=== PATIENT | male | born 1955 | race Caucasian/White ===

== ENCOUNTER 2025-07-19 22:29 | Inpatient (IN) | payer MEDICARE, BC, SELFPAY ==
--- NOTE | 2025-07-19 22:30 | PTCARENOTE ---
Patient received from transport @ 2230. Patient states he is comfortable w/ no pain. AOx3. SR on monitor BP 150/91 HR 86. Heart sounds audible but distant. Radial and pedal pulses present. Trace bilateral hand edema. POX 95% RA. Expiratory
wheezes and course bilateral lung sounds. Normoactive bowel sounds. Voids clear yellow urine. PIV's patent and intact. Right radial and right brachial cath sites C/D/I. Heparin infusing per protocol. Admission questions asked. Med
reconciliation performed. Labs and EKG obtained. See worklist for more details.
[2025-07-19 22:31] VITALS: BMI 34.6
[2025-07-19 22:35] VITALS: BP 150/91
[2025-07-19 22:55] LABS: Hematocrit 38.2 % (39.0-52.0); Hemoglobin 13.2 g/dL (13.0-18.0); Mean Corp Hgb Conc. 34.6 g/dL (33.0-37.0); Mean Corpuscular Volume 89.7 fL (80.0-94.0); Platelet Count 273 10^3/uL (130-400); Red Cell Dist. Width 12.8 % (11.5-14.5)
[2025-07-19 23:04] LABS: INR 1.05; PT 14.2 Sec (11.4-14.6)
[2025-07-19 23:05] LABS: APTT 55.5 Sec (23.4-35.0)
[2025-07-19 23:23] LABS: ALT (SGPT) 37 U/L (0-50); AST (SGOT) 41 U/L (17-59); Albumin 4.4 g/dl (3.5-5.0); Alkaline Phosphatase 71 U/L (38-126); Blood Urea Nitrogen 17 mg/dl (9-20); Calcium 9.3 mg/dl (8.4-10.2); Carbon Dioxide 27 mmol/L (22-30); Chloride 100 mmol/L (98-107); Estimated Creatinine Clearance 102 ml/min; Glucose 150 mg/dl (70-99); Magnesium 1.9 mg/dl (1.6-2.3); Potassium 3.5 mmol/L (3.5-5.1); Sodium 136 mmol/L (135-145); Total Protein 7.8 g/dl (6.3-8.2); eGFR > 60.00
[2025-07-19] MEDS: DUONEB 3 ML INH (23:29)
[2025-07-19 23:46] LABS: Troponin I 0.613 ng/ml
[2025-07-19] MEDS: HEPARIN 25000 UNITS/250 ML IV (23:54)
[2025-07-20] VITALS (8 sets, daily range): BP systolic 129–154; BP diastolic 60–86; BMI 34.5
[2025-07-20] MEDS: MUCINEX 600 MG PO ×3 (00:27→20:46)
[2025-07-20] MEDS: KCL 40 MEQ PO (00:27)
--- NOTE | 2025-07-20 03:25 | HPS.HSE ---
Family Physician
-
Family Physician: Jerad Bowden
Outpatient Baseball Hand Sewer: Dr. Degroot (new pt)
Chief Complaint
-
SOB, Chest discomfort, cough
History of Present Illness
Mr Zacarias is pleasant 70 yo gentleman with hx HTN, dyslipidemia, DM (diet controlled), multiple renal stones, prostate CA with prostatectomy. Pt was recently on a 12-day trip to [place] where he started to feel sore throat, cough and congestion, for
which he tried cough syrup. Since he came back on Sun 07/16, he has been having worsening SOB with exertion, orthopnea, and some 'chest squeezing.' This prompted him to come in to [facility] ED on 07/18/25. He was found to have elevated high sensitivity-
trops of 736/886, elevated BNP 538 with congestive edema on CXR. CTA revealed no PE, small b/l pleural effusions, likely tracheobronchitis, possible gas trapping. There was also evidence of enlarged mediastinal lymph nodes.
Pt was treated with Lasix. He underwent Cath by Dr Degroot on 07/19 revealing mv-CAD and was transferred to for evaluation for CABG. Currently, he denies having any CP since 07/18. He is on iv Heparin @ 1800 units/hr. He has some expiratory wheezing
on exam, pOx 95% on RA and 96-99% on 2L. He feels more comfortable breathing sitting up, but doesn't appear to be in any distress.
Medical History
Past Medical History
Past Medical History: Reports HTN, Hypercholesterolemia (takes [id number] supplements) and NIDDM (diet controlled)
Additional Past Medical History:
Past Surgical History: Reports Other (prostatectomy for prostate CA (no further tx))
Additional Past Surgical History:
Prostatectomy for Prostate CA with no further tx
Social History
Tobacco: Former Smoker (quit in 1974)
Alcohol: Occasional
Drug: None
Personal:
Living: With Family
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
Family History
Family History: Not pertinent
Allergies / Home Medications
Allergies reflects when Allergies were last updated in [facility].
Home Medications with original date entered in [facility]
Allergy/Medication List:
Allergies
Allergy/AdvReac Type Severity Reaction Status Date / Time
ibuprofen Allergy Hives Verified 07/19/25 23:19
Penicillins Allergy Swelling Verified 07/19/25 23:20
Home Medication List (Pre admission)
�Medication �Instructions �Recorded
Metamucil 1XD 07/19/25
Multi Vitamin 07/19/25
hydrochlorothiazide 12.5 mg tablet 12.5 mg PO DAILY 07/19/25
lisinopril 40 mg tablet 40 mg PO DAILY HTN 07/19/25
Review of Systems
-
History Source: Patient and Transfer Record
A 12 point ROS was completed and negative except as noted: Yes
Constitutional: Reports No Symptoms
EENT: Reports Sore Throat
Respiratory: Reports Cough (with clear phlegm. Denies any fever, chills or night sweats)
Cardiac: Reports Chest Pain (no CP since has been in the hospital)
Abdomen/GI: Reports No Symptoms
: Reports No Symptoms
Musculoskeletal: Reports No Symptoms
Skin: Reports No Symptoms
Neurological: Reports No Symptoms
Endocrine: Reports No Symptoms
Hematologic/Lymphatic: Reports No Symptoms
Psych: Reports No Symptoms
Physical Exam
Vital Signs
Vital Signs
Temp Pulse Resp BP Pulse Ox
97.5 F 66 20 150/91 99
07/19/25 22:35 07/20/25 02:45 07/19/25 23:30 07/19/25 22:35 07/20/25 02:45
Physical Exam
General: Well Developed, Well Nourished, Comfortable and Conversant
HEENT: NormoCephalic, Moist mucous membranes, Atraumatic and PERRLA
Respiratory: Wheezes (with expiration b/l. ) and Crackles (at bases b/l)
Cardiac: S1/S2, Regular Rhythm (no murmur, rub or gallop) and JVD
GI: Soft, Non Tender, Non Distended and Normal Bowel Sounds
Musculoskeletal: No Clubbing, No Cyanosis and No Edema
Skin: Warm and Dry
Neuro: Awake, AO x 3 and Nonfocal/grossly intact
Psych: Calm
Laboratory Results
-
Laboratory Results
PT 14.2 Sec (11.4-14.6) 07/19/25 22:47
INR 1.05 07/19/25 22:47
APTT 55.5 Sec (23.4-35.0) H 07/19/25 22:47
Total Bilirubin 1.3 mg/dl (0.2-1.3) 07/19/25 22:47
AST 41 U/L (17-59) 07/19/25 22:47
ALT 37 U/L (0-50) 07/19/25 22:47
Alkaline Phosphatase 71 U/L (38-126) 07/19/25 22:47
Troponin I 0.613 ng/ml H* 07/19/25 22:47
Data Reviewed
-
CT Scan: Report Reviewed by me
Medical Tests (Nuc Med, Echo, EKG etc): Report Reviewed by me
Lab Data: Labs Reviewed by me
Old Records: Reviewed
Impression/Plan
-
IMPRESSION:
-mv-CAD, s/p Cath by Dr. Degroot at [facility] on 07/19/25
-NSTEMI
-acute (suspected) systolic CHF
-EF 25% per verbal report- check Echo
-cough/tracheobronchitis- Mucinex
-enlarged mediastinal lymph nodes on CTA at [facility]- follow
-HTN
-dyslipidemia - check lipids, started Lipitor
-DM II - check HgA1C, accuchecks/ISS
-class 2 obesity (BMI 35)
-renal stones with multiple lithotripsies and stents
-prostate CA with prostatectomy
PLAN:
-uploaded cath into [facility]. Will review images with Dr. Loving
-Echo
-diurese with Lasix
-CAD/NSTEMI - started ASA, Lipitor, Toprol, continue iv Heparin
-will ask Cardiology to follow
[2025-07-20 05:19] LABS: INR 1.05; PT 14.2 Sec (11.4-14.6)
[2025-07-20 05:21] LABS: APTT 67.8 Sec (23.4-35.0)
[2025-07-20 05:23] LABS: Hematocrit 37.9 % (39.0-52.0); Hemoglobin 13.1 g/dL (13.0-18.0); Mean Corp Hgb Conc. 34.6 g/dL (33.0-37.0); Mean Corpuscular Volume 92.0 fL (80.0-94.0); Platelet Count 269 10^3/uL (130-400); Red Cell Dist. Width 12.9 % (11.5-14.5)
[2025-07-20 05:38] LABS: ALT (SGPT) 34 U/L (0-50); AST (SGOT) 38 U/L (17-59); Albumin 4.1 g/dl (3.5-5.0); Alkaline Phosphatase 63 U/L (38-126); Blood Urea Nitrogen 16 mg/dl (9-20); Calcium 9.1 mg/dl (8.4-10.2); Carbon Dioxide 30 mmol/L (22-30); Chloride 102 mmol/L (98-107); Estimated Creatinine Clearance 116 ml/min; Glucose 145 mg/dl (70-99); HDL Cholesterol 35 mg/dl; LDL Cholesterol, Calculated 126 mg/dl; Magnesium 1.9 mg/dl (1.6-2.3); Potassium 4.1 mmol/L (3.5-5.1); Sodium 140 mmol/L (135-145); Total Protein 7.3 g/dl (6.3-8.2); Very Low Density Lipoprotein 27 mg/dl (0-30); eGFR > 60.00
--- NOTE | 2025-07-20 08:06 | CON.CAR ---
Addendum entered and electronically signed by Sebas Blanco MD 07/20/25 15:29:
I saw and examined the patient.
The SCRAP PILER's note was reviewed and I agree with the note.
Patient seen this morning. Transferred from [facility] is a 70-year-old male with a history of diabetes, hypertension hyperlipidemia prostate cancer and prostatectomy who recently traveled to [place] he had nasal congestion and cold-like symptoms
that started approximately 1 week ago. The day prior to presentation he had some exertional shortness of breath and that the day of presentation he had some exertional chest tightness that resolved after a couple minutes. He had evaluation at [facility] which revealed cardiomyopathy and reportedly estimated ejection fraction 25% and also revealed multivessel coronary artery disease.. Transfer for evaluation. By CT surgery for possible coronary artery bypass grafting. Patient's had no
recurrence of chest discomfort. Currently comfortable sitting in a chair. No respiratory stress. Exam notable for bilateral wheezes. He had an echocardiogram today which showed an ejection fraction of 30 to 35%. Hypokinesis mainly involving the
distal portion of the left ventricle and the left ventricular apex. Chest and abdomen CT performed today suggested mild interstitial edema. No pulmonary infiltrate reported severe stenosis of the celiac axis. ECG sinus rhythm with possible prior
anterior CO. No acute ischemic changes.
-.
Multivessel coronary artery disease and ischemic cardiomyopathy with ejection fraction 30 to 35% by echocardiogram at [facility] 07/20/2025
- Review of cath films by both CT surgery and interventional cardiology as we determine best course of action for revascularization.
- Continue with medical therapy
Wheezing. May be due to combination of recent URI and component of pulmonary edema. Mild interstitial edema reported on CT
- Continue with diuresis
- Monitor weights and renal function
- Pulmonary consultation
Cardiomyopathy. Ischemic cardiomyopathy
- Continue diuresis as noted above
- Toprol-XL.
- Additional GDMT, timing depending on if patient proceeds with CABG versus PCI
Dyslipidemia. Statin
DM A1c 6.7. Monitor
Original Note:
Consultation
Consultation Request
Date/Time Consultation Requested: 07/20/25 1057
Date/Time Consultation Performed: 07/20/25 08
Requesting Provider: Moses SANCHEZ
Performing Provider: Lillie RIVER for Dr. Blanco
Reason for Consultation: CAD
Medical History
-
Chief Complaint: chest discomfort, SOB
History of Present Illness:
70 y/o male with HTN, HLD, and DM (not on prescription meds for the latter two). Also with hx prostate cancer s/p prostatectomy. He presented to [facility] for SOB and chest squeezing. He also had orthopnea and productive cough. No fever
or chills. First symptoms started on Thursday after he got home from a trip to [place]- he had congestion. SOB started worsening on Thursday and he had chest squeezing at rest. He went to [facility]. Trops abnormal and CXR with evidence for excess volume, and
BNP elevated 538. He was diuresed and had a cath with Dr. Degroot 07/19/25, which revealed multivessel CAD (per [facility] and CT surgery notes- I do not have access to the current cath report). Additionally, he is reported to have cardiomyopathy (EF 25%),
but I also do not have access to echo report results at this time. He is here to be evaluated for CABG. He has no CP at the time of my assessment. He is feeling well overall. He continues to have productive cough- clear, and has wheezing and coarse
lung sounds, but no SOB. Chest imaging from 07/18/25 as noted in detail below.
Past Medical History
Past Medical History: Cancer, HTN, Hypercholesterolemia and NIDDM
Social History
Tobacco: Former Smoker
Alcohol: Occasional
Personal:
Living: With Family
Family History
Family History: Reviewed & Not Pertinent (denies CAD)
Allergies / Home Medications
Allergy/AdvReac Type Severity Reaction Status Date / Time
ibuprofen Allergy Hives Verified 07/19/25 23:19
Penicillins Allergy Swelling Verified 07/19/25 23:20
�Medication �Instructions �Recorded �Confirmed �Type
Metamucil 1XD 07/19/25 History
Multi Vitamin DAILY 07/19/25 History
hydrochlorothiazide 12.5 mg tablet 12.5 mg PO DAILY 07/19/25 07/19/25 History
lisinopril 40 mg tablet 40 mg PO DAILY HTN 07/19/25 07/19/25 History
Review of Systems
-
History Source: Patient
All other systems: Negative unless noted
Respiratory: Cough and Trouble Breathing
Cardiac: Chest Pain
Physical Exam
Vital Signs
Temp Pulse Resp BP Pulse Ox
98.4 F 80 20 144/85 96
07/20/25 07:20 07/20/25 07:20 07/20/25 07:20 07/20/25 07:20 07/20/25 07:20
Lab Results
07/20/25 04:51
07/20/25 04:51
Troponin I 0.613 ng/ml H* 07/19/25 22:47
Physical Exam
General: Well Developed, Well Nourished and No Apparent Distress
HEENT: Normocephalic and Anicteric
Respiratory: Wheezes and Rhonchi
Cardiac: Regular Rhythm
Musculoskeletal: No Edema
Skin: Warm and Dry
Neuro: AO x 3
Psych: Calm
Impression / Plan
-
NSTEMI:
-this diagnosis is threat to life
-high sensitivity trops 736, 866 at [facility]. 0.613 here.
-no CP at present
-continue IV heparin, which requires intensive monitoring
-HGBA1C pending
-on ASA, statin
CAD, multivessel:
-cath films to be reviewed by CTS
-being evaluated for CABG
-continue ASA, statin
Cardiomyopathy, ischemic, Acute HFrEF:
-details unknown, but per CT surgery note EF 25%. Echo being repeated here (I changed original CTS order since it was in outpatient orders).
-On IV Lasix, monitor volume
-GDMT when able
Dyslipidemia:
-LDL 126
-now on high-intensity statin
DM:
-checking HGBA1C- reports his last was 6.7
-on SSI
Abnormal CT scan:
-CTA 07/18/25 revealed no PE, distal tracheal and bilateral bronchial wall thickening in keeping with tracheobronchitis, small b/l pleural effusions, bilateral diffuse mosaic attenuation which may represent air trapping, mild cardiomegaly, enlarged
mediastinal lymph nodes. Getting Mucinex for cough. Likely needs f/u on this abnormal testing.
Data Reviewed
-
EKG: Tracing Personally Visualized and interpreted (NSR 78 BPM, evidence for anterior infarct)
CT Scan: Report Reviewed by me (CTA 07/18/25 revealed no PE, distal tracheal and bilateral bronchial wall thickening in keeping with tracheobronchitis, small b/l pleural effusions, bilateral diffuse mosaic attenuation which may represent air
trapping, mild cardiomegaly, enlarged mediastinal lymph nodes. )
Labs: Labs Reviewed by me
Old Records: Reviewed (I reviewed available records from [facility])
[2025-07-20 08:27] LABS: Glucose - Point of Care 129 mg/dl (70-99)
[2025-07-20] MEDS: LOW STRENGTH ASPIRIN 81 MG PO (08:31)
[2025-07-20] MEDS: PROTONIX 40 MG PO (08:31)
[2025-07-20] MEDS: TOPROL XL 12.5 MG PO (08:31)
--- NOTE | 2025-07-20 09:08 | PTCARENOTE ---
The patient is aaox3, his vital signs are stable. He is 96% on RA. He has no complaints of SOB however, he dose have scattered faint wheezing on expiration and a productive cough with clear sputum. NSR is noted on the monitor. His right wrist and
right brachial cath sites are c/d/i. Heparin is rinning at 1900 units/hr. He states that he 'feels much better that before.'
[2025-07-20] MEDS: LASIX 40 MG IV (09:33)
[2025-07-20] MEDS: DUONEB 3 ML INH ×3 (10:03→19:34)
[2025-07-20 10:10] LABS: Urine Character Clear (Clear)
[2025-07-20 10:30] LABS: Urine Squamous Cell 0-2 /LPF (Few)
[2025-07-20 10:32] LABS: Urine Red Blood Cell 70-80 /HPF (0-2)
[2025-07-20 11:28] LABS: Glycohemoglobin (HgbA1c) 6.9 % (4.0-5.6)
[2025-07-20] MEDS: DUONEB INH (11:38)
--- NOTE | 2025-07-20 12:57 | CARDSERVLU ---
Echocardiogram with [facility] completed after protocol screening completed. Allergies verified.
Patent IV site: Left arm -site clear
IV site flushed with 0.9% NaCl pre and post administration.
Diluted bolus method utilized to enhance visualization of ventricular casas.
Total volume given: __3__ mL
Patient tolerated all procedures well without complications.
[2025-07-20] MEDS: HEPARIN 25000 UNITS/250 ML IV (13:44)
[2025-07-20 14:19] LABS: APTT 55.0 Sec (23.4-35.0)
[2025-07-20 14:54] LABS: Glucose - Point of Care 113 mg/dl (70-99)
--- NOTE | 2025-07-20 16:00 | CM ---
Reviewed chart. Met with and Mrs. Zacarias to review discharge plans. He states prior to admission he resides with his spouse in a three story home with three steps to enter. He states he has a full flight of steps get to bedroom/full bathroom.
He states he has a powder room on the first floor. He states prior to admission he was independent with ambulation and adls. He states he does not have any DME in the home. He states he has a prescription plan and uses [facility]. Medical
work-up in progress. The discharge plan is to return home with his spouse and a home visit by the Transitional Care Nurse when medically stable.
We reviewed pre-op and post routines. We briefly reviewed the shower instructions. We also reviewed restrictions including sternal precautions and driving restrictions. We also discussed a home visit by the Transitional Care Nurse. He is
agreeable to a home visit. The plan is for CABG timing to be determined by the surgeon.
--- NOTE | 2025-07-20 16:14 | CON.PUL ---
Consultation
Consultation Request
Date/Time Consultation Requested: 07/20/2025
Date/Time Consultation Performed: 07/20/2025
Performing Provider: Dr. Edil Mansfield
Reason for Consultation: preparatory pulmonary assessment/?COPD
Medical History
-
History of Present Illness:
70-year-old man with past medical history significant for hypertension, dyslipidemia, type 2 diabetes, multiple renal stones, history of stomach cancer status post prostatectomy. Recently returned from [place] and 07/16/2025. Complaining of worsening
shortness of breath, orthopnea and chest discomfort. Came to the emergency room on 07/18/2025. Troponins were elevated, proBNP was mildly elevated chest x-ray with heart failure.
CT of the chest revealed no pulmonary embolism, small pleural effusions.
Mild increase in lymph nodes also was noted.
-
Patient was diureses underwent cardiac catheterization on 07/19/2025 revealing multivessel coronary artery disease. Transferred to [facility] for evaluation of coronary artery bypass
He has remained on a heparin drip premix and remains on 2 L supplemental oxygen.
Not in acute distress
We were consulted on 07/20/2025 for evaluation, preprocedure assessment given spirometry suggesting restriction
He is a former smoker that quit in 1974. Does not take any inhalers and does not carry diagnosis of COPD-
Past Medical History
Past Medical History: Other ( she has a small lump on)
Social History
Tobacco: Former Smoker ( quitting in 1974)
Alcohol: Occasional
Drug: None
Personal:
Living: With Family
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
Occupational Exposures: denies
Environmental Exposures: denies
Family History
Family History: Reviewed & Not Pertinent
Allergies / Home Medications
Allergies
Allergy/AdvReac Type Severity Reaction Status Date / Time
ibuprofen Allergy Hives Verified 07/19/25 23:19
Penicillins Allergy Swelling Verified 07/19/25 23:20
Home Medications
�Medication �Instructions �Recorded �Confirmed �Last Taken �Type
Metamucil 1XD Gastrointestinal Issue 07/19/25 07/16/25 19:00 History
Multi Vitamin DAILY Supplement 07/19/25 07/16/25 08:00 History
hydrochlorothiazide 12.5 mg tablet 12.5 mg PO DAILY Blood Pressure 07/19/25 07/19/25 07/18/25 History
lisinopril 40 mg tablet 40 mg PO DAILY HTN 07/19/25 07/19/25 07/18/25 16:00 History
Review of Systems
-
History Source: Patient
All other systems: Negative unless noted
Vitals / Labs / Diagnostic Testing
Vital Signs
Temp Pulse Resp BP Pulse Ox
98.8 F 92 22 129/74 95
07/20/25 13:31 07/20/25 15:00 07/20/25 14:35 07/20/25 13:35 07/20/25 14:35
Lab Data
07/20/25 04:51
07/20/25 04:51
Laboratory Results
07/19/25 07/20/25 07/20/25
22:47 04:51 13:48
PT 14.2 14.2
INR 1.05 1.05
APTT 55.5 H 67.8 H 55.0 H
Diagnostic Testing:
Physical Exam
-
HEENT: Normocephalic
Cardiovascular: S1/S2
Respiratory: Rales (Bibasilar) and Non-Labored Respirations
GI: Soft and Non Distended
Neurology: Awake, Alert and AO x 3
Skin: Warm
General: Comfortable
Assessment
-
70-year-old man with past medical history not, he was transferred to [facility] for evaluation of coronary artery bypass from [facility]. He was found to have acute heart failure, pulmonary edema, multivessel coronary artery
disease. Ejection fraction on echocardiogram per report at 25%. pulmonary consulted for preoperative assessment.
Restrictive lung defect on spirometry suspected-Likely related to body habitus and interstitial edema.
CT chest 07/20/2025: Depending atelectasis. No evidence for interstitial lung disease. Kadeem B-lines and mild thickening of intra-alveolar septa compatible with mild pulmonary edema. No pulmonary nodules. No emphysema.
Obesity
Conditions present prior to admission:
2 diabetes
Obesity
Multiple renal stones
History of prostate cancer status post prostatectomy
Assessment and plan:
From the pulmonary perspective: Restriction likely due to body habitus and pulmonary edema.
No evidence for any underlying pulmonary disease.
Has mild crackles bibasilarly likely in relationship to pulmonary edema.
CT scan of the chest without pulmonary fibrosis, interstitial lung disease or emphysema.
Patient is a never smoker.
-
May proceed without any additional interventions for coronary artery bypass as planned.
Eventually he will require full pulmonary function testing in the outpatient setting to
Discussed with CT surgery-plan is for CABG tomorrow morning.
Critical care team will follow postoperatively.
-
We did discuss possibility of obstructive sleep apnea: present and there is all the signs and symptoms.
Recommend outpatient sleep study.
He is agreeable.
Information will be left in the chart.
-
Will follow
-
Above discussed with patient and in detail at the bedside by Dr. Mansfield 07/20/2025.
--- NOTE | 2025-07-20 17:04 | W.CVOR.SURPR ---
CVOR Surgeon Immed Pre Op
-
I have examined this patient prior to performance of the scheduled procedure.
The patient's condition is unchanged from the time of the dictated/written History and
Physical and the patient is able to undergo the scheduled procedure.
Mr. Zacarias is a 70 yo male who presents with worsening SOB/fatigue and exertional CP. He was cathed at [facility] for NSTEMI presentation and found to have significant multivessel disease. On my review of his cath, he has severe disease in the mid LAD into
large diagnal branch, and mid circumflex. His TTE here show EF 30-35% (slightly improved from prior) and no valvular disease. He does have increased [id number] score. Will plan on CABG x 4 (STERLING-LAD, RSVG-Diag, RSVG-OM, RSVG-PDA) and LAAL. The
procedure was reviewed in detail with patient and his spouse. All questions were answered and consent obtained.
--- NOTE | 2025-07-20 17:18 | W.PN.UPDATE ---
Update Note
Progress Note Update
Procedure Type:�Isolated CABG
Perioperative Outcome Estimate %
Operative Mortality 1.86%
Morbidity & Mortality 7.95%
Stroke 0.964%
Renal Failure 1.36%
Reoperation 2.34%
Prolonged Ventilation 4.77%
Deep Sternal Wound Infection 0.218%
Long Hospital Stay (>14 days) 4.85%
Short Hospital Stay (<6 days)* 39.1%
Clinical Summary
Planned Surgery: Isolated CABG, Urgent, First cardiovascular surgery
Demographics: 70 year old, male, 106kg, 175cm, BMI: 34.6 kg/m�
Lab Values: Creatinine: 0.7 mg/dL, Hematocrit: 38%, WBC Count: 7.3 10�/�L, Platelet Count: 019554 cells/�L
Substance Abuse: Never smoker, Alcohol use: Unknown
Risk Factors / Comorbidities: Hypertension, Family Hx of CAD
Pulmonary RF: Mild CLD
Cardiac Status: Acute and chronic heart failure, NYHA Class II, Ejection Fraction = 35%
Coronary Artery Disease: 3 vessels diseased, Non-ST Elevation IA, IA: 1 to 7 Days
Valve Disease: Aortic Stenosis
[2025-07-20] MEDS: FLUSH (NSS) 2 FLUSH IV (17:23)
[2025-07-20] MEDS: BENADRYL 25 MG IV ×2 (17:24→18:20)
--- NOTE | 2025-07-20 17:29 | PTCARENOTE ---
The patient complained of itching and a swollen upper lip. His face, head, neck, chest, and back were red with hives breaking out in these areas. His upper lip was swollen. He kept scratching the top of his head. He stated that everything he ate for
lunch he has eaten before, no new foods. He did have a CT earlier with contrast. He stated that he has never had contrast before. The last medication he received was a neb treatment at 1429. I alerted the CT PA and received an order for IV Benadryl.
Benadryl was given per order.
[2025-07-20] MEDS: LIPITOR 40 MG PO (17:50)
[2025-07-20] MEDS: SOLU-MEDROL PF 60 MG IV (18:21)
[2025-07-20] MEDS: ADRENALIN 0.5 MG IM ×2 (18:22→18:28)
[2025-07-20] MEDS: NSS (PRESERVATIVE FREE) 8 ML IV (18:27)
[2025-07-20] MEDS: PEPCID 20 MG IV (18:27)
--- NOTE | 2025-07-20 18:36 | W.PN.UPDATE ---
Update Note
Progress Note Update
Patient was complaining about a swollen lip and itchiness on his back around 5pm. He was given 25mg of IV Benadryl. After one hour patient was noted to have more swelling, difficulty coughing and breathing. He was then treated with a total of 1mg if
IM Epi, 60mg of methylprednisone, 20mg IV Pepcid, and 50mg of Benadryl. He was placed on 6LNC for comfort and anesthesia was called to bedside since there was a low threshold for intubation. Patient responded well to medications and patient was
transferred to CVICU for closer monitoring. He reports that his symptoms rapidly improved. Although, it is unknown what agent caused this reaction since the patient only reported allergies to ibuprofen and PCN. Attending, Dr. Cano, is aware. We
will continue to monitor overnight if patient remains stable he will be taken for CABG tomorrow.
Kayleigh RIVER
Cardiac Surgery
--- NOTE | 2025-07-20 19:47 | PTCARENOTE ---
Around 1800 the patient complained of difficulty swallowing and breathing post iv Benadryl (given for hives earlier). He still appeared red with visible hives all over his body including his arms and legs, which were not there earlier. Also, his
tongue now appeared larger and his voice was at a whisper. He was 95% on RA. I applied 2L of O2 and alerted Kalyeigh the CT PA. She arrived to assess the patient. In addition, 2 RNs from CVICU came in to assist and administered the medications that
were ordered. He was given 2 doses of 0.5mg of epinephrine, 2 doses of 25mg of IV Benadryl, 60mg of of Solu Medrol, and 20mg of IV Pepcid. After the medications were given, he began to breath better, his color improved, his hives diminished some,
and his voice had started to come back. He was transferred to CVICU for closer observation.
--- NOTE | 2025-07-20 20:00 | PTCARENOTE ---
assumed care of pt from previous RN. pt A&Ox4, resting in bed at time of assessment. pt w/ minor swelling of the lips and eyes. SR w/ occasional PACs on tele-monitor. POX 92-96% on 4 L NC. abd s/n, round, obese. +BS. voiding clear, yellow colored
urine. all procedural sites stable. PIV intact. see worklist for complete nursing assessment, interventions, gtt titrations, VS, and I&Os.
[2025-07-20] MEDS: DECADRON 4 MG IV (20:46)
[2025-07-20 20:56] LABS: Glucose - Point of Care 202 mg/dl (70-99)
--- NOTE | 2025-07-20 21:00 | PTCARENOTE ---
pt clipped for CVOR. washed w/ CHG.
[2025-07-20 21:15] LABS: APTT 65.0 Sec (23.4-35.0)
[2025-07-20 22:22] LABS: VerifyNow PRU 273 PRU (180-376)
[2025-07-21] VITALS (14 sets, daily range): BP systolic 95–154; BP diastolic 56–102; BMI 34.1
[2025-07-21] MEDS: BENADRYL 50 MG IV (00:03)
--- NOTE | 2025-07-21 00:20 | PTCARENOTE ---
assessment remains unchanged. VSS. no c/o pain at this time.
[2025-07-21] MEDS: HEPARIN 25000 UNITS/250 ML IV (02:17)
--- NOTE | 2025-07-21 04:00 | PTCARENOTE ---
no acute changes. VSS. AM labs collected and sent.
[2025-07-21 04:03] LABS: Hematocrit 37.7 % (39.0-52.0); Hemoglobin 12.9 g/dL (13.0-18.0); Mean Corp Hgb Conc. 34.2 g/dL (33.0-37.0); Mean Corpuscular Volume 91.5 fL (80.0-94.0); Platelet Count 287 10^3/uL (130-400); Red Cell Dist. Width 12.7 % (11.5-14.5)
[2025-07-21 04:09] LABS: APTT 112.5 Sec (23.4-35.0)
[2025-07-21 04:37] LABS: Blood Urea Nitrogen 18 mg/dl (9-20); Calcium 9.1 mg/dl (8.4-10.2); Carbon Dioxide 30 mmol/L (22-30); Chloride 101 mmol/L (98-107); Estimated Creatinine Clearance 102 ml/min; Glucose 201 mg/dl (70-99); Potassium 4.3 mmol/L (3.5-5.1); Sodium 140 mmol/L (135-145); eGFR > 60.00
[2025-07-21] MEDS: LOPRESSOR 25 MG PO (05:37)
[2025-07-21] MEDS: PROTONIX 40 MG PO (05:37)
[2025-07-21] MEDS: MAGNESIUM OXIDE 400 MG PO (05:37)
[2025-07-21] MEDS: BACTROBAN 2% OINTMENT 1 APPLIC NASAL ×2 (05:37→20:05)
[2025-07-21] MEDS: BENADRYL IV ×3 (05:38→18:20)
[2025-07-21] MEDS: DECADRON 4 MG IV (06:48)
[2025-07-21 07:23] LABS: Urine Character Clear (Clear)
[2025-07-21 07:30] LABS: Urine Red Blood Cell 30-40 /HPF (0-2)
--- NOTE | 2025-07-21 07:49 | W.PN.CD ---
Today's Communication / Plan
-
CABG today.
Impression / Plan
-
Impression/Plan: 70 y/o male with HTN, HLD, DM transferred with NSTEMI and acute ischemic HFrEF.
#NSTEMI:
-Acute, diagnosis is threat to life.
-High sensitivity troponin = 736, 866 at [facility]; 0.613 here.
-Continue IV heparin, which requires intensive monitoring.
-Continue aspirin.
-Plan for CABG today.
-Anticipate routine post operative recovery.
-Wean vent to extubate.
-Titrate pressors/inotropes for MAP > 65 mmHg, CI > 1.8 L/min/m2.
#CAD, multivessel:
-Acute on chronic.
-CABG today.
-Secondary prevention post CABG.
#Cardiomyopathy/HFrEF:
-Acute, improving.
-GDMT when hemodynamics will tolerate post op.
#Dyslipidemia:
-Chronic, stable.
-Total cholesterol = 188, LDL = 126, HDL = 35, Triglycerides = 136.
-Continue atorvastatin 40 mg daily.
-Goal LDL < 55.
#DM:
-Chronic, stable.
-HbA1c = 6.7%.
#Allergic reaction:
-Acute.
-Resolved with epinephrine, steroids, anti-histamines.
#Abnormal CT scan (CTA 07/18/25):
-No PE, distal tracheal and bilateral bronchial wall thickening in keeping with tracheobronchitis, small b/l pleural effusions, bilateral diffuse mosaic attenuation which may represent air trapping, mild cardiomegaly, enlarged mediastinal lymph
nodes.
-Getting Mucinex for cough. Likely needs f/u on this abnormal testing.
Physical Exam
Vital Signs/Labs
Vital Signs
Temp Pulse Resp BP Pulse Ox
36.8 C 90 16 144/92 98
07/21/25 04:00 07/21/25 06:00 07/21/25 04:00 07/21/25 05:37 07/21/25 06:00
07/19/25 07/20/25 07/21/25
11:59 11:59 11:59
Actual Weight 105.9 kg 104.8 kg
07/21/25 03:45
07/21/25 03:45
PT 14.2 Sec (11.4-14.6) 07/20/25 04:51
INR 1.05 07/20/25 04:51
APTT 112.5 Sec (23.4-35.0) H 07/21/25 03:45
Magnesium 1.9 mg/dl (1.6-2.3) 07/20/25 04:51
Triglycerides 136 mg/dl (10-149) 07/20/25 04:51
LDL Cholesterol, Calc 126 mg/dl 07/20/25 04:51
VLDL Cholesterol, Calc 27 mg/dl (0-30) 07/20/25 04:51
HDL Cholesterol 35 mg/dl 07/20/25 04:51
LAB Results
07/19/25
22:47
Troponin I 0.613 H*
Physical Exam
Constitutional: No acute distress
EENT: Anicteric, Moist mucous membranes and Other (ET Tube in place.)
Neuro/Psych: Other (Intubated/sedated.)
Data Reviewed
-
Date of Service: July 21, 2025
Medical Decision Making: Reviewed Test Results, Test Interpretation and Review of Case with other Provider
EKG: Tracing Personally Visualized and interpreted and Report Reviewed by me
Echo: Tracing Personally Visualized and interpreted and Report Reviewed by me
X-Ray/CT/US/MRI/NUC/PET: Report Reviewed by me
Labs: Labs Reviewed by me
Old Records: Reviewed
[2025-07-21 07:52] LABS: ACT+ - POC 137 Seconds (82-134)
[2025-07-21] MEDS: DUONEB INH (08:34)
[2025-07-21 09:15] LABS: ACT+ - POC 406 Seconds (82-134)
[2025-07-21 09:27] LABS: ACT+ - POC 412 Seconds (82-134)
[2025-07-21 09:36] LABS: ACT+ - POC 461 Seconds (82-134)
[2025-07-21 09:54] LABS: B.E. - POC 2.2 mmol/L; Glucose - POC 186 mg/dl (70-99); HCO3 - POC 28 mmol/L (21-28); Hematocrit - POC 34 % PCV (42-52); Hemodilution- POC No; Hemoglobin Calculated - POC 11.7; Ionized Calcium - POC 1.16 mmol/L (1.15-1.33); Lactate - POC 1.00 mmol/L (0.36-0.75); O2 Saturation %Calculated-POC 99.8 % (94-98); PCO2 - POC 49 mmHg (35-48); PO2 - POC 234 mmHg (83-108); Potassium - POC 3.7 mmol/L (3.5-5.1); Sodium - POC 136 mmol/L (136-145); Specimen Type - POC Arterial; pH - POC 7.37 (7.35-7.45)
[2025-07-21 09:54] LABS: ACT+ - POC 464 Seconds (82-134)
[2025-07-21 10:05] LABS: ACT+ - POC 546 Seconds (82-134)
[2025-07-21 10:31] LABS: B.E. - POC 5.8 mmol/L; Glucose - POC 172 mg/dl (70-99); HCO3 - POC 31 mmol/L (21-28); Hematocrit - POC 32 % PCV (42-52); Hemodilution- POC Yes; Hemoglobin Calculated - POC 11.0; Ionized Calcium - POC 1.03 mmol/L (1.15-1.33); Lactate - POC 0.73 mmol/L (0.36-0.75); O2 Saturation %Calculated-POC 100.0 % (94-98); PCO2 - POC 47 mmHg (35-48); PO2 - POC 510 mmHg (83-108); Potassium - POC 4.9 mmol/L (3.5-5.1); Sodium - POC 138 mmol/L (136-145); Specimen Type - POC Arterial; pH - POC 7.43 (7.35-7.45)
[2025-07-21 10:46] LABS: ACT+ - POC 517 Seconds (82-134)
--- NOTE | 2025-07-21 10:56 | CM ---
pt in OR today, cm to follow.
[2025-07-21 11:13] LABS: B.E. - POC 4.9 mmol/L; Glucose - POC 180 mg/dl (70-99); HCO3 - POC 30 mmol/L (21-28); Hematocrit - POC 29 % PCV (42-52); Hemodilution- POC Yes; Hemoglobin Calculated - POC 9.9; Ionized Calcium - POC 1.02 mmol/L (1.15-1.33); Lactate - POC 1.11 mmol/L (0.36-0.75); O2 Saturation %Calculated-POC 99.9 % (94-98); PCO2 - POC 47 mmHg (35-48); PO2 - POC 330 mmHg (83-108); Potassium - POC 4.5 mmol/L (3.5-5.1); Sodium - POC 139 mmol/L (136-145); Specimen Type - POC Arterial; pH - POC 7.42 (7.35-7.45)
[2025-07-21 11:22] LABS: ACT+ - POC 482 Seconds (82-134)
[2025-07-21 11:49] LABS: B.E. - POC 3.8 mmol/L; Glucose - POC 166 mg/dl (70-99); HCO3 - POC 28 mmol/L (21-28); Hematocrit - POC 34 % PCV (42-52); Hemodilution- POC Yes; Hemoglobin Calculated - POC 11.4; Ionized Calcium - POC 1.06 mmol/L (1.15-1.33); Lactate - POC 1.44 mmol/L (0.36-0.75); O2 Saturation %Calculated-POC 99.9 % (94-98); PCO2 - POC 40 mmHg (35-48); PO2 - POC 286 mmHg (83-108); Potassium - POC 4.2 mmol/L (3.5-5.1); Sodium - POC 140 mmol/L (136-145); Specimen Type - POC Arterial; pH - POC 7.45 (7.35-7.45)
[2025-07-21 11:54] LABS: ACT+ - POC 123 Seconds (82-134)
[2025-07-21] MEDS: LASIX IV (11:59)
[2025-07-21] MEDS: LOW STRENGTH ASPIRIN PO (12:00)
[2025-07-21] MEDS: MUCINEX PO (12:01)
[2025-07-21] MEDS: PROTONIX PO (12:02)
[2025-07-21] MEDS: TOPROL XL PO (12:03)
[2025-07-21 12:52] LABS: B.E. - POC 1.2 mmol/L; Glucose - POC 130 mg/dl (70-99); HCO3 - POC 26 mmol/L (21-28); Hematocrit - POC 29 % PCV (42-52); Hemodilution- POC Yes; Hemoglobin Calculated - POC 9.9; Ionized Calcium - POC 1.23 mmol/L (1.15-1.33); Lactate - POC 1.94 mmol/L (0.36-0.75); O2 Saturation %Calculated-POC 96.2 % (94-98); PCO2 - POC 42 mmHg (35-48); PO2 - POC 84 mmHg (83-108); Potassium - POC 3.1 mmol/L (3.5-5.1); Sodium - POC 140 mmol/L (136-145); Specimen Type - POC Arterial; pH - POC 7.40 (7.35-7.45)
[2025-07-21 13:09] LABS: Glucose - Point of Care 149 mg/dl (70-99)
[2025-07-21 13:20] LABS: B.E. 1.8 mmol/L; HCO3 27.2 mmol/L (21-28); O2 Saturation % 90.5 % (94-98); PCO2 45 mmHg (35-48); Potassium 3.3 mMOL/L (3.5-5.1); Sodium 138 mMOL/L (136-145)
[2025-07-21 13:21] LABS: Hematocrit 32.0 % (39.0-52.0); Hemoglobin 11.2 g/dL (13.0-18.0); Platelet Count 213 10^3/uL (130-400)
[2025-07-21] MEDS: DUONEB 3 ML INH (13:21)
[2025-07-21 13:25] LABS: APTT 27.8 Sec (23.4-35.0); INR 1.34; O2 Therapy vent; PO2 58 mmHg (83-108); PT 16.9 Sec (11.4-14.6)
[2025-07-21] MEDS: CALCIUM GLUCONATE 100 IV (13:34)
[2025-07-21] MEDS: KCL 50 IV ×2 (13:34→14:49)
[2025-07-21] MEDS: DILAUDID 0.5 MG IV (13:35)
[2025-07-21] MEDS: NSS 500 IV (13:36)
--- NOTE | 2025-07-21 13:41 | W.PN.CT.SURG ---
CT Surgery Operative Note
-
CARDIAC SURGERY OPERATIVE REPORT
Preoperative Diagnosis: Multivessel Coronary Artery Disease with NSTEMI and acute ischemic heart failure with reduced ejection fraction
Postoperative Diagnosis: Same
Procedure(s) Performed:
1. Standard Sternotomy with Aortic and Right Atrial Cannulation
2. Internal Mammary Artery Harvesting, Left
3. Coronary artery bypass grafting x 4 (In situ STERLING to LAD, Ao to RSVG to Diag, Ao to OM1, Ao to RSVG to PDA)
4. Endoscopic vein harvesting of right greater saphenous vein
5. Transesophageal echocardiography
6. Placement of Temporary Ventricular Pacing Wires
7. Left atrial appendage ligation
Date of Surgery: 07/21/2025
Comorbidities:
1. Hypertension
2. Hyperlipidemia
3. Diabetes, not currently on oral medications or insulin. HbA1c 6.7
4. Cardiomyopathy/heart failure with reduced ejection fraction
Attending Surgeon: Kyung Cano MD, MPH
Assistants: Scooby Gill PA-C and Pretty Aragon PA-C (present and necessary to library circulation assistant, endoscopic vein harvest, retraction, suction, exposure, suture management, and wound closure under my direction)
Anesthesiology: Tito Jalloh MD and Kim Dominique CRNA
Scrub and Circulating RNs: Roxi Maurice RN, Cruzito Valladares RN
Medical Physics Professor: Gama Piña CCP
Anesthesia: GETA
EBL: per perfusion records
Products: None
CPB Time: 117 minutes
Aortic Cross Clamp Time: 100 minutes
Indication(s) for Procedures: 70-year-old male history of hypertension, hyperlipidemia, diet-controlled DM, prostate cancer history of prostatectomy who presented to [facility] ED with complaints of chest pain and worsening shortness of breath. He had
noted this started on his recent 2-week trip to [place] where he felt he was slower than normal. Cath was done by Dr. Degroot which showed significant multivessel coronary disease and newly reduced ejection fraction. He was transferred for evaluation
for possible CABG. On my review of the imaging he had significant disease in his mid to distal RCA, multiple lesions in his LAD including a proximal lesion into his diagonal branch, and significant disease in his mid circumflex. TTE on arrival
here shows EF 30 to 35% with mild MR and questionable aortic stenosis likely mild. He additionally has increased [id number] score, so we will plan to do four-vessel CABG and left atrial appendage ligation.
Conduit(s) Quality:
STERLING -excellent quality and length with really good flow
RSVG -there was plenty of length saphenous vein graft which was of great quality without significant varicosities and pumped up nicely when flushed
Target(s) Quality:
RPDA -this target was smaller than initially thought it would be and had some soft yellow plaque on the posterior wall of the vessel. A 1 mm probe could easily pass in both directions. There was excellent flow to the vein graft with a flow probe
of 60 cc/min and a pulse index of 1.5.
OM1 -great target with 2 mm lumen. Flow probe showing 50 cc/min and pulse index of 1.5.
Diagonal -smaller vessel with 1 mm lumen. Flow probe showing 57 cc/min on pulse index of 1.5
LAD -we targeted the distal LAD where there was a nice soft spot. Blood probe showing 30 cc/min pulse index 2.6
Findings: MARY prior to the procedure showed EF approximately 35% with hypokinesis largely global, mild AI with good leaflet mobility and mild MR. Her postop MARY showed some improvement in EF, he was notably on dobutamine, there certainly was better
squeeze and no MR, AI stable. Given the decent preoperative ejection fraction above 30% decision was made that Impella would not be necessary preemptively. The STERLING was harvested in a skeletonized fashion. Following bypass grafting, test dose
cardioplegia was given down each distal and confirmed patency and hemostasis. Each distal was probed both proximally and distally to confirm disease and patency, respectively.
Description of Procedure: The patient was taken to the operating room. Their identity and procedure to be performed were verified and they were positioned supine on the operating table. Induction via general anesthesia with endotracheal intubation
was performed and central venous access and arterial monitoring were inserted. A preoperative transesophageal echocardiogram was performed to assess cardiac function and valvular function. The patient was then prepped and draped from chin to feet in
a sterile fashion. A preoperative time-out was performed with all members of the team present. A midline chest incision was performed along with median sternotomy. Simultaneous endoscopic access of the right lower extremity for saphenous vein
harvest was obtained along with administration of an initial 5,000 units of IV heparin. A RulTract sternal retractor was positioned to exposure the left internal mammary bed. The mammary was harvested and found to have good flow. A bulldog clamp was
applied to the distal end of the mammary after dividing it. It was wrapped in a papaverine soaked RayTec and replaced back into the left hemithorax. The RulTract was exchanged for a median sternal retractor. The innominate vein was isolated. Full
heparinization was given (a total of 80,000 units). We created a pericardial well. The aortic cannulation site was chosen where it was soft, pliable, and free of calcium. Cannulation was performed with an arterial cannula in the ascending aorta and
a triple-stage venous cannula through the right atrial appendage. The arterial cannula line had an appropriate bounce and correlating pressures with test dosing. Next, a root vent/antegrade cannula was inserted into the ascending aorta and
retrograde cannula into the coronary sinus. The ACT was confirmed to be over 400 and retrograde autologous priming was performed before commencing cardiopulmonary bypass. The pulmonary artery was away from the aorta to facilitate a clamp
site. The aortic cross-clamp was placed after decreasing the flow on the bypass and mean arterial pressure. A total of 1.2L initial dose of Del-Nido cardioplegia solution was given and planned for re-dosing every 75 minutes as necessary. There was
rapid electro-mechanical arrest of the heart at 800 cc of cardioplegia. We initiated cardioplegia via antegrade cannula but noted LV distension likely as a result of the AI. 200 cc were given antegrade then switched to retrograde. Cold slush was
placed into a sponge and topically on the RV while we systemically cooled to 34 degrees centigrade.
I positioned the heart to expose the distal right coronary at the posterior descending artery. A kletsel dehe wintun blade was used to expose the coronary and perform the arteriotomy. Coronary Felipe scissors were used to enlarge the incision. The saphenous vein
was trimmed and beveled to an appropriate size. The distal anastomosis was performed using 7-0 prolene in an end-to-side fashion. Antegrade cardioplegia was administered into the graft. Appropriate hemostasis and flow were confirmed. The graft was
measured for length to the aorta and cut. A suitable site on the first obtuse marginal was chosen. We dissected and prepared the distal target in a similar fashion. An end-to-side anastomosis was created with a 7-0 prolene. Antegrade cardioplegia
was administered into the graft. Appropriate hemostasis and flow were confirmed. The graft was measured for length to the aorta and cut. A suitable site on the diagnal was chosen. We dissected and prepared the distal target in a similar fashion. An
end-to-side anastomosis was created with a 7-0 prolene. Antegrade cardioplegia was administered into the graft. Appropriate hemostasis and flow were confirmed. The graft was measured for length to the aorta and cut. A suitable target on the distal
left anterior descending was identified. We dissected and prepared the distal target in a similar fashion. We retrieved the STERLING from the chest and created a pericardial opening while being cognizant of the phrenic nerve to facilitate the course of
the mammary. The distal end of the mammary was prepped and beveled to size. We verified orientation and length of the ANI and found brisk flow. An end-to-side anastomosis was created with a 7-0 prolene. We temporarily released the bulldog clamp on
the mammary to inspect flow. Perfusion to the LAD territory was visualized and hemostasis was confirmed. The bull clamp was replaced on the mammary. The heart was filled and the root was distended with antegrade cardioplegia to make final assessment
of graft length and orientation. We created 3 aortotomies using a #11 blade then a 4.0mm aortic punch. The proximal anastomoses were created in an end-to-side fashion using 6-0 prolene. At the the same time, we re-warmed to 36.5 degrees centigrade.
The bulldog clamp was removed from the mammary. Temporary bipolar ventricular pacing wires were placed on the base of the right ventricle. The patient was placed in a Trendelenburg position and flows on bypass were lowered. The aortic cross clamp
was removed and flows were slowly brought back up. A 30-gauge needle was used to de-air the vein grafts. All bypass grafts were inspected and were free from kinking or twisting. The distal and proximal anastomoses appeared hemostatic. Once
transesophageal echocardiography appeared satisfactory for de-airing, the flows were temporarily lowered for root vent removal. After verifying acceptable parameters, we initiated weaning from cardiopulmonary bypass. Once we were off cardiopulmonary
bypass, the venous cannula was clamped and removed. A test dose of protamine was administered and the patient was monitored for any adverse reaction before resuming protamine. Once half of the protamine dose was delivered, pump suckers were turned
off and the systolic blood pressure was lowered for aortic decannulation. The aortic cannula was removed and pursestrings were tied down. All cannulation sites were oversewn with a 4-0 prolene. The mammary bed was inspected and hemostasis was
confirmed. Once the mediastinum was hemostatic, 19Fr Jose L drain was placed in the left pleural cavity and two 24Fr Jose L drains were placed within the pericardium. The sternum was approximated with 4 #7 single and 3 #8 double stainless steel wires.
Fascia was approximated with #1 vicryl suture. The subcutaneous, dermis and epidermis were closed in layers in a running fashion. The skin wound was cleansed and dressed.
All instrument, sponge, and needle counts were confirmed to be correct x 2 at the end of the operation. The patient was transferred to the cardiac intensive care unit in critical but stable condition.
I, Dr. Kyung Cano, was present, scrubbed for, and performed all critical elements of this procedure.
Kyung Cano MD, MPH
Cardiothoracic Surgeon
[facility]
This operative dictation was created using the [employer] dictation system. Please excuse any grammatical, typographical, or 'sound alike' errors
[2025-07-21 13:52] LABS: Blood Urea Nitrogen 20 mg/dl (9-20); Estimated Creatinine Clearance 101 ml/min; Glucose 131 mg/dl (70-99); Magnesium 2.5 mg/dl (1.6-2.3)
[2025-07-21 14:03] LABS: B.E. 1.3 mmol/L; HCO3 26.6 mmol/L (21-28); O2 Saturation % 96.6 % (94-98); PCO2 44 mmHg (35-48); PO2 79 mmHg (83-108)
[2025-07-21 14:04] LABS: Glucose - Point of Care 140 mg/dl (70-99)
[2025-07-21] MEDS: VANCOCIN 530 MG IV (14:14)
[2025-07-21] MEDS: AZACTAM 2000 MG IV ×2 (14:15)
[2025-07-21] MEDS: STERILE WATER FOR INJECTION 10 ML IV ×2 (14:15)
[2025-07-21] MEDS: NOVOLOG FLEXPEN SC ×2 (14:16→17:23)
[2025-07-21] MEDS: TYLENOL PO ×2 (14:16→20:53)
--- NOTE | 2025-07-21 14:35 | PN.DE.MGMTRT ---
Insulin Management
- -
07/21/2025: Diabetes Management Consult
70 year old male with MVCAD with NSTEMI and acute ischemic heart failure with reduced ejection fraction. PMH: HTN, HLD, [id number] controlled.
A1C 6.9%, Cr 0.8, eGFR >60
Now POD 0 s/p CABG x5. Pt is intubated and sedated, unable to interview, no family at bedside. All information and hx obtained from chart review and Nurse.
Currently on glycemic protocol, blood sugar is stable 149 requiring 3.5 units of insulin/hr.
Cont insulin infusion postoperatively x48 hrs. Will reassess readiness to transition off insulin infusion on POD2
Start Farxiga 10mg daily and Metformin 500mg BID on 07/23/25
Discussed with Nurse. Will cont to follow
Diabetes History
- -
Type of Diabetes: 2
Pre-Admission Diabetes Regimen
07/21/25 07/21/25
03:45 13:03
Creatinine 0.8 0.8
Lab Results
Hemoglobin A1c 6.9 % (4.0-5.6) H 07/20/25 04:51
Insulin Pump Settings
IP Diabetes Regimen
07/20/25 07/20/25 07/21/25
14:52 20:52 03:45
Glucose 201 H
POC Glucose 113 H 202 H
07/21/25 07/21/25 07/21/25
13:03 13:04 13:53
Glucose 131 H
POC Glucose 149 H 140 H
Meal type: Lunch
Amount consumed: 100%
Patient Education
--- NOTE | 2025-07-21 14:35 | PTCARENOTE ---
Patient received from CVOR at 1255; Sedated and intubated; SR with RBBB on monitor; VSS; Friction rub present; Epicardial V wire present with temporary pacemaker settings VVI 30/10/2.0; +1 DP and radial pulses present; Lungs diminished throughout;
ETT size 8 positioned and secured at 23 cm right lip; Ventilator settings SIMV 16/550/5/10 FiO2 90% - SpO2 86-90% upon arrival so PEEP increased from 8 to 10 and nebulizer treatment given by RT at bedside; CTx3 to -20 cm wall suction draining bloody
drainage - no air leak, tidaling, or crepitus noted; Hypoactive BS; Mccracken catheter in place draining clear, yellow urine; Sternal midline incision glued and approximated - CDI, right groin puncture glued, approximated, and ecchymotic - CDI, right
leg wrapped in RJ wrap - CDI; Right radial A-line in place, [place] Iker present in [facility] Cordis at 45 cm - all lines zeroed and leveled; PIVx1 - #20 LAC; Levo, insulin, precedex, cardene, and dobutamine infusing - see nursing flowsheets for further
details; K repleted x2; iCal repleted x1; ABG repeated following ventilator changes as per DODIE Eubanks; see nursing documentation for further details.
CO: 4.86
CI: 2.21
SVR: 1,135
[2025-07-21] MEDS: VERSED 0.5 MG IV (14:54)
[2025-07-21 15:03] LABS: Glucose - Point of Care 142 mg/dl (70-99)
--- NOTE | 2025-07-21 15:52 | PTCARENOTE ---
CVNP Samra C. and RT in room and patient placed on CPAP breathing trial at 1535; EPOC ABG due at 1605
[2025-07-21 16:14] LABS: Glucose - Point of Care 106 mg/dl (70-99)
[2025-07-21 16:15] LABS: B.E. - POC 4.0 mmol/L; Blood Urea Nitrogen - POC 19 mg/dl (3-120); Chloride - POC 108 mmol/L (96-111); Creatinine - POC 0.98 mg/dl (0.3-1.0); Glucose - POC 131 mg/dl (70-99); HCO3 - POC 29 mmol/L (21-28); Hematocrit - POC 35 % PCV (42-52); Hemodilution- POC Yes; Hemoglobin Calculated - POC 11.7; Ionized Calcium - POC 1.31 mmol/L (1.15-1.33); Lactate - POC 1.61 mmol/L (0.36-0.75); O2 Saturation %Calculated-POC 92.1 % (94-98); PCO2 - POC 43 mmHg (35-48); PO2 - POC 63 mmHg (83-108); Potassium - POC 4.2 mmol/L (3.5-5.1); Sodium - POC 143 mmol/L (136-145); Specimen Type - POC Arterial; pH - POC 7.43 (7.35-7.45)
--- NOTE | 2025-07-21 16:20 | PTCARENOTE ---
EPOC ABG reviewed with DODIE Eubanks at bedside; RT at bedside; Patient extubated at 1615 and placed on 6L NC; IS 750 ml
--- NOTE | 2025-07-21 16:36 | RESPNOTE ---
Patient placed on cpap/psv 5/8 @ 40% at approximately 1535. ABG drawn and ran at 1610, and patient with positive cuff leak on exam. Okay per HIDE PULLER and surgeon to extubate. Extubated to 6L NC at 1615. No stridor noted on extubation. Spo2 91-93% at this
time. IS reviewed and PEP at bedside.
[2025-07-21 16:52] LABS: Glucose - Point of Care 128 mg/dl (70-99)
[2025-07-21 17:02] LABS: B.E. 2.3 mmol/L; HCO3 27.3 mmol/L (21-28); O2 Saturation % 95.9 % (94-98); PCO2 43 mmHg (35-48); PO2 71 mmHg (83-108); Potassium 4.3 mMOL/L (3.5-5.1); Sodium 136 mMOL/L (136-145)
[2025-07-21 17:03] LABS: Hematocrit 32.6 % (39.0-52.0); Hemoglobin 11.3 g/dL (13.0-18.0); Platelet Count 238 10^3/uL (130-400)
--- NOTE | 2025-07-21 17:22 | W.PN.INTV ---
Today's Communication / Plan
Recommendations
Continue dobutamine drip, weaning off as tolerated while trending MVO2
Continue insulin drip per protocol
Goal BG 110�140
Pain control
Removal of chest tubes per CT surgery team
Monitor for recurrence of rash, angioedema/anaphylaxis
Tomorrow can stop Decadron and can make Benadryl prn
Gold Tooler service will continue to follow along while he remains in the CVICU
Assessment
-
Assessment: 70-year-old male with a past medical history of hypertension, hyperlipidemia, chronic HFrEF, DM type II, and prostate cancer s/p prostatectomy who presents from [facility] after presenting there with SOB + chest squeezing
discomfort. Also had cough and orthopnea without fevers or chills. He had gone to [place] and symptoms began after he returned home. Show's were abnormal at [facility] with volume overload seen on imaging. He is diuresed and left heart catheterization
showed multivessel CAD. He was also noted to have cardiomyopathy with EF 25%. Patient transferred here for evaluation for CABG. Pulmonary service consulted on 07/20/2025, and spirometry performed on 07/20/2025 shows complete resolution of a
moderate obstructive lung defect with a significant bronchodilator response, consistent with asthma. Patient underwent CABG x 4 with left atrial appendage ligation on 07/21, and now patient managed in the CVICU with repossessor service is now
following.
Chronic conditions [employer]: Hypertension, hyperlipidemia, chronic HFrEF, DM type II, prostate cancer s/p prostatectomy
Impression:
#Multivessel CAD with NSTEMI and acute HFrEF s/p CABG x 4 with left atrial appendage ligation (POD #0)
#Acute anemia
#Anaphylactic reaction (severe in the setting of asthma and lisinopril - unknown trigger for his anaphylaxis, although possibly something he ate)
#DM type II complicated by hyperglycemia (mild)
#Hypertension
#Hyperlipidemia
#ICM with acute on chronic HFrEF
#Obesity (BMI: 34.1)
Plan:
Patient had been extubated by the time I had saw him, currently saturating 91% on 6 L/min.
Continue to wean down supplemental O2 flow rate while keeping SpO2 >90-94%
prn nebulized bronchodilators - not currently bronchospastic
Encourage incentive spirometer q1hr while awake
Spirometry from yesterday reviewed and shows complete resolution of a moderate obstructive lung defect with a significant bronchial response, consistent with asthma
- Check manual diff tomorrow AM on CBC to assess his absolute eosinophils
Patient had received epinephrine 0.5mg IM x2 yesterday evening, also received Pepcid 20mg IV, Solu-Medrol 60 mg IV and Benadryl IV
He is now continuing to receive Benadryl 50 mg IV q6h, and Decadron 4 mg IV q12hr
Considering that he had received epinephrine in a timely manner, he has a very low risk for recurrence at this point
Will continue with Benadryl and Decadron for now, holding Benadryl for sedation
By tomorrow, can stop scheduled Benadryl and make prn only, and Decadron can be stopped
Pulmonary artery catheter parameters will be followed
Pressors/antihypertensive/inotropes/diuretics will be provided as needed
Maintain MAP>65
Replete electrolytes with K>4, Mg>2
Monitor chest tube output (left pleural chest tube x 1+ mediastinal chest tubes x 2)
Monitor hemoglobin
Monitor platelet count and coags
Transfuse blood products as needed to maintain Hb>7g/dL, plt>50k (given post-operative status)
CT surgery managing chest tubes
Monitor blood sugar to maintain euglycemia with goal BG 110-140
Insulin drip per protocol
Aspiration precautions
VAP prevention protocol
DVT prophylaxis
Early nutrition
Early mobilization
Critical care statement: A total of 41 minutes of critical care time was provided for this patient today. This includes management of ventilator, spontaneous breathing trial, arterial blood gases, pressors, of unstable vital signs, evaluation of the
patient at bedside, reviewing the patient's pertinent medical records including radiographs, microbiology, laboratory evaluations, and discussion with primary team and critical care nursing.
Subjective Dataa
Subjective Data
Date of Service:
Date of Service: July 21, 2025
Chief Complaint: Gold Tooler Follow Up
Subjective:
Patient was seen and evaluated today at bedside. Heart rate 92, BP 90/49, and PAP 20/13 with CO/CI 5.71/2.6. Currently on dobutamine at 5 mcg/kg/min and insulin drip at 2.6 units/h. Patient's , Kourtney, and several other additional friends/5
members are at bedside. All questions were answered. Patient says he feels well. His tongue/lips and airway was much more swollen yesterday, and it is almost completely back to normal today.
Review of Systems
General: Other (Negative unless mentioned above)
Objective Data
Data Reviewed
Vital Signs / I&O / Oxygen:
Vital Signs
Temp Pulse Resp BP Pulse Ox
98.1 F 94 10 95/58 96
07/21/25 20:00 07/21/25 20:00 07/21/25 20:00 07/21/25 20:00 07/21/25 20:00
Intake and Output
07/20/25 07/21/25 07/22/25
06:59 06:59 06:59
Intake Total 197 / 197 724.6 / 724.6
Output Total 1640 / 1640 720 / 720
Balance -1443 / -1443 4.6 / 4.6
SaO2 [CPAP/PSV] 93
SaO2 [SIMV] 94
SaO2 96
Nasal Cannula flow liters per 6
minute
Physical Exam
General: Respiratory Distress (negative), Comfortable, Chills (negative) and Sweats (negative)
HEENT: Normocephalic, Anicteric and Other (Thick neck)
Cardiovascular: S1-S2, Rub (positive) and Peripheral Edema (negative)
Respiratory: Wheeze (negative), Rhonchi (negative), Non-Labored Respirations, Stridor (negative), Chest Tube (Left pleural chest tube x 1+ mediastinal chest tubes x 2) and Other (Coarse breath sounds heard bilaterally)
GI: Soft, Distended (Abdominal obesity), Non Tender and Normal Bowel Sounds
Neurology: Awake (Drowsy at times) and Tremors (negative)
Skin: Warm, Dry, Cyanosis (negative) and Jaundice (negative)
Labs/Micro/Reports
Lab Data
07/21/25 16:50
07/21/25 13:03
Laboratory Results
07/20/25 07/21/25 07/21/25
20:55 03:45 13:03
PT 16.9 H
INR 1.34
APTT 65.0 H 112.5 H 27.8
pH 7.39
pCO2 45
pO2 58 L*
HCO3 27.2
O2 Delivery Level vent
07/21/25 07/21/25
13:53 16:50
PT
INR
APTT
pH 7.39 7.41
pCO2 44 43
pO2 79 L 71 L
HCO3 26.6 27.3
O2 Delivery Level
Microbiology
07/20/25 04:51 Nose MRSA Screen - Final
No Methicillin Resistant Staphylococcus aureus isolated.
[2025-07-21] MEDS: PACERONE PO (17:23)
[2025-07-21] MEDS: NEURONTIN PO (17:23)
[2025-07-21] MEDS: VANCOCIN 200 IV (17:41)
[2025-07-21] MEDS: LIPITOR PO (17:59)
[2025-07-21 18:04] LABS: Glucose - Point of Care 149 mg/dl (70-99)
[2025-07-21] MEDS: LOW STRENGTH ASPIRIN 81 MG PO (18:33)
--- NOTE | 2025-07-21 20:00 | PTCARENOTE ---
assumed care of pt from previous RN. pt A&Ox4, bedrest s/p CVOR. R IJ cordis w/ swan floated to 45cm. R radial a-line. all lines levled, zeroed, flushed. SR on tele-monitor w/ occasional PACs/PVCs. temp epicardial v-wires w/ back up settings VVI
. POX 94-96% on [address] x3 (mediastinal x2, L pleural) to -20cm wall suction. abd s/n, round, obese. hypoactive BS. hameed catheter draining clear, yellow colored urine. all surgical sites stable, CDI. PIV intact. plan of care discussed w/
pt, pt in agreement. see worklist for complete nursing assessment, interventions, gtt titrations, VS, and I&Os.
[2025-07-21 20:04] LABS: Glucose - Point of Care 149 mg/dl (70-99)
[2025-07-21] MEDS: OFIRMEV 100 IV (20:32)
[2025-07-21] MEDS: SENOKOT PO (20:52)
[2025-07-21 22:12] LABS: Glucose - Point of Care 155 mg/dl (70-99)
[2025-07-21] MEDS: NEURONTIN 100 MG PO (22:43)
[2025-07-21] MEDS: PACERONE 200 MG PO (22:43)
[2025-07-21 23:57] LABS: Glucose - Point of Care 118 mg/dl (70-99)
[2025-07-22] VITALS (28 sets, daily range): BP systolic 102–134; BP diastolic 52–89; PULSE 93; O2SAT 96–97; BMI 35.4; BMI 35.0
[2025-07-22] MEDS: FLEXERIL 5 MG PO ×2 (00:01→22:23)
[2025-07-22] MEDS: ROXICODONE 5 MG PO ×4 (00:01→22:22)
--- NOTE | 2025-07-22 00:15 | PTCARENOTE ---
assessment remains unchanged. VSS. CT drainage WNL. pt c/o pain, see DEC.
[2025-07-22] MEDS: DILAUDID 0.25 MG IV ×2 (00:54→19:45)
[2025-07-22 02:14] LABS: Glucose - Point of Care 125 mg/dl (70-99)
[2025-07-22 03:19] LABS: Glucose - Point of Care 119 mg/dl (70-99)
[2025-07-22] MEDS: DOBUTREX 500 MG 250 IV ×2 (03:21→17:38)
[2025-07-22 03:28] LABS: Hematocrit 30.8 % (39.0-52.0); Hemoglobin 10.5 g/dL (13.0-18.0); Mean Corp Hgb Conc. 34.1 g/dL (33.0-37.0); Mean Corpuscular Volume 91.9 fL (80.0-94.0); Platelet Count 208 10^3/uL (130-400); Red Cell Dist. Width 13.2 % (11.5-14.5)
[2025-07-22 03:56] LABS: Blood Urea Nitrogen 22 mg/dl (9-20); Calcium 9.0 mg/dl (8.4-10.2); Carbon Dioxide 27 mmol/L (22-30); Chloride 108 mmol/L (98-107); Estimated Creatinine Clearance 90 ml/min; Glucose 116 mg/dl (70-99); Magnesium 2.2 mg/dl (1.6-2.3); Potassium 4.0 mmol/L (3.5-5.1); Sodium 140 mmol/L (135-145); eGFR > 60.00
[2025-07-22 04:08] LABS: Glucose - Point of Care 121 mg/dl (70-99)
[2025-07-22 05:12] LABS: Glucose - Point of Care 116 mg/dl (70-99)
[2025-07-22] MEDS: TYLENOL 975 MG PO ×3 (05:15→22:22)
[2025-07-22] MEDS: VANCOCIN 200 IV (05:15)
--- NOTE | 2025-07-22 05:49 | W.PN.CT ---
Addendum entered and electronically signed by Elpidio Fay MD 07/22/25 09:06:
I saw and examined the patient.
The PA's note was reviewed and I agree with the note.
Comment:
POD#1 s/p CABG x 4, ELAA
No major overnight events. AVSS. Sinus. 6L NC. CI: 3.7. GTTS: dobutamine 5, insulin. CT: M: 195/280, P: 50/140. UO: 400/845. Tolerating PO (clears). Neuro: intact
CXR: clear
- Dobutamine to 4 (and HOLD)
- Maintain CTs, maintain hameed (creat 0.9), maintain SGC
- D/C a-line
- OOB/IS/ambulate in room
Original Note:
Today's Communication / Plan
-
- POD #1
- Doing well. No major events overnight
- Tele review: NSR, occasional PACs
- Gtt's: dobutamine @ 5, insulin, cardene @ 2.5
- PA 33/15, RA 10 CO 6.27 CI 2.85 SVR 714
- Extubated ~1600 hrs yesterday to LFNC
- CTs: 2M 195/280, pleural 50/140 cc out in 12/24 hrs
- wean down/off O2, IS use reinforced
- OOB, ambulate as tolerated, on 6 L NC
Assessment / Plan
-
NSTEMI/MVCAD s/p CABG x4 (In situ STERLING to LAD, Ao to RSVG to Diag, Ao to OM1, Ao to RSVG to PDA), DANIELLE ligation with Dr. Cano on 07/21/25 POD #1
Post MARY: improvement in EF (prior 30%), no MR, AI stable
NSTEMI
MVCAD
HFrEF
ICM
Angioedema (IgE mediated?)
HTN
HLD
DM2 A1c 6.7%
Prostate cancer s/p prostatectomy
acute post op respiratory insufficiency
acute post op anemia
Subjective
-
Date of Service: July 22, 2025
Objective Data
-
Lab Results
07/22/25 03:17
07/22/25 03:17
PT 16.9 Sec (11.4-14.6) H 07/21/25 13:03
INR 1.34 07/21/25 13:03
APTT 27.8 Sec (23.4-35.0) 07/21/25 13:03
Vital Signs
Vital Signs
Temp Pulse Resp BP Pulse Ox
97.9 F 92 15 116/73 95
07/22/25 05:00 07/22/25 05:15 07/22/25 05:15 07/22/25 05:00 07/22/25 05:15
CT Intake/Output/Weight
07/21/25 07/21/25 07/22/25
06:59 18:59 06:59
Intake Total 197 / 197 616.0 / 1198.9 582.9 / 1198.9
Output Total 620 / 1230 610 / 1230
Balance 197 / -1443 -4.0 / -31.1 -27.1 / -31.1
SaO2: 95
Physical Exam
-
General: Awake, Oriented and AOx3
Cardiovascular: Regular rate & rhythm, No Murmurs and No Rub
Respiratory: Clear, Equal and Decreased Breath Sounds
Sternum: Stable
Incision: Clean, Dry and Intact
Extremities: Edema +1 and No Erythema
Data Reviewed
-
Lab Results: Results Reviewed
Medications: Active Meds Reviewed
Chest X-Ray: Report Reviewed and Image Reviewed
ECG: Report Reviewed
[2025-07-22 06:04] LABS: Glucose - Point of Care 163 mg/dl (70-99)
[2025-07-22 06:47] LABS: Absolute Neutrophils -Man Diff 12.1 10^3/uL (1.4-6.5)
[2025-07-22] MEDS: NOVOLIN R INSULIN INFUSION 100 IV (06:56)
[2025-07-22 08:08] LABS: Glucose - Point of Care 93 mg/dl (70-99)
[2025-07-22] MEDS: NOVOLOG FLEXPEN SC ×2 (08:17→12:08)
--- NOTE | 2025-07-22 08:27 | W.PN.INTV ---
Today's Communication / Plan
Recommendations
Up OOB as tolerated
Continue dobutamine drip and wean as tolerated while trending MVO2 with goal >65 and goal CI >2
Continue insulin drip, weaning off per protocol
Goal BG 110�140
Wean down supplemental O2, maintaining SpO2 >90-94%
Encourage incentive spirometer
White Work Cleaner service will continue to follow along while patient remains in CVICU
Assessment
-
Assessment: 70-year-old male with a past medical history of hypertension, hyperlipidemia, chronic HFrEF, DM type II, and prostate cancer s/p prostatectomy who presents from [facility] after presenting there with SOB + chest squeezing
discomfort. Also had cough and orthopnea without fevers or chills. He had gone to [place] and symptoms began after he returned home. Show's were abnormal at H with volume overload seen on imaging. He is diuresed and left heart catheterization
showed multivessel CAD. He was also noted to have cardiomyopathy with EF 25%. Patient transferred here for evaluation for CABG. Pulmonary service consulted on 07/20/2025, and spirometry performed on 07/20/2025 shows complete resolution of a
moderate obstructive lung defect with a significant bronchodilator response, consistent with asthma. Patient underwent CABG x 4 with left atrial appendage ligation on 07/21, and now patient managed in the CVICU with manager cargo service is now
following.
Chronic conditions CLINICAL WRITER: Hypertension, hyperlipidemia, chronic HFrEF, DM type II, prostate cancer s/p prostatectomy
Impression:
#Multivessel CAD with NSTEMI and acute HFrEF s/p CABG x 4 with left atrial appendage ligation (POD #1)
#Acute anemia
#Anaphylactic reaction (severe in the setting of asthma and lisinopril - unknown trigger for his anaphylaxis, although possibly something he ate)
#DM type II complicated by hyperglycemia (mild)
#Hypertension
#Hyperlipidemia
#ICM with acute on chronic HFrEF
#Obesity (BMI: 34.1)
Plan:
Patient was extubated on 07/21 and is currently breathing comfortably on 2 L/min nasal cannula saturating 97%
Continue to wean down supplemental O2 flow rate while keeping SpO2 >90-94%
prn nebulized bronchodilators - not currently bronchospastic
Encourage incentive spirometer q1hr while awake
Spirometry from 07/20/2025 reviewed and shows complete resolution of a moderate obstructive lung defect with a significant bronchial response, consistent with asthma
- No evidence of eosinophils on CBC
Patient had received epinephrine 0.5mg IM x2 on evening of 07/20, also received Pepcid 20mg IV, Solu-Medrol 60 mg IV and Benadryl IV
Continue Benadryl 50 mg IV q6h prn; steroids stopped
Considering that he had received epinephrine in a timely manner, he has a very low risk for recurrence at this point
Pulmonary artery catheter parameters will be followed
Pressors/antihypertensive/inotropes/diuretics will be provided as needed
Maintain MAP>65
Replete electrolytes with K>4, Mg>2
Monitor chest tube output (mediastinal chest tubes x 2)
Monitor hemoglobin
Monitor platelet count and coags
Transfuse blood products as needed to maintain Hb>7g/dL, plt>50k (given post-operative status)
CT surgery managing chest tubes
Monitor blood sugar to maintain euglycemia with goal BG 110-140
Insulin drip per protocol
Aspiration precautions
DVT prophylaxis
Early nutrition
Early mobilization
Critical care statement: A total of 41 minutes of critical care time was provided for this patient today. This includes management of ventilator, spontaneous breathing trial, arterial blood gases, pressors, of unstable vital signs, evaluation of the
patient at bedside, reviewing the patient's pertinent medical records including radiographs, microbiology, laboratory evaluations, and discussion with primary team and critical care nursing.
Subjective Dataa
Subjective Data
Date of Service:
Date of Service: July 22, 2025
Chief Complaint: White Work Cleaner Follow Up
Subjective:
Patient seen today at bedside. Currently on dobutamine at 4 mcg/kg/min, and insulin drip at 4 units/hr. No acute events reported overnight. Heart rate 93, BP 120/63 (via NIBP) and PAP 42/20. Currently breathing comfortably, saturating 97% on 2
L/min nasal cannula.
Review of Systems
General: Other (Negative unless mentioned above)
Objective Data
Data Reviewed
Vital Signs / I&O / Oxygen:
Vital Signs
Temp Pulse Resp BP Pulse Ox
97.8 F 92 20 125/49 97
07/22/25 09:00 07/22/25 09:00 07/22/25 09:00 07/22/25 08:34 07/22/25 09:00
Intake and Output
07/21/25 07/22/25 07/23/25
06:59 06:59 06:59
Intake Total 197 / 197 1254.2 / 1317.0 150.0 / 150.0
Output Total 1640 / 1640 1265 / 1300 100 / 100
Balance -1443 / -1443 -10.8 / 17.0 50.0 / 50.0
SaO2 [CPAP/PSV] 93
SaO2 [SIMV] 94
SaO2 97
Nasal Cannula flow liters per 3
minute
Physical Exam
General: Respiratory Distress (negative), Comfortable, Chills (negative) and Sweats (negative)
HEENT: Normocephalic, Anicteric and Other (Thick neck)
Cardiovascular: S1-S2, Rub (positive) and Peripheral Edema (negative)
Respiratory: Wheeze (negative), Rhonchi (negative), Non-Labored Respirations, Stridor (negative), Chest Tube (mediastinal chest tubes x 2) and Other (Coarse breath sounds heard bilaterally)
GI: Soft, Distended (Abdominal obesity), Non Tender and Normal Bowel Sounds
Neurology: Awake (Drowsy at times) and Tremors (negative)
Skin: Warm, Dry, Cyanosis (negative) and Jaundice (negative)
Labs/Micro/Reports
Lab Data
07/22/25 03:17
07/22/25 03:17
Laboratory Results
07/21/25 07/21/25 07/21/25
13:03 13:53 16:50
PT 16.9 H
INR 1.34
APTT 27.8
pH 7.39 7.39 7.41
pCO2 45 44 43
pO2 58 L* 79 L 71 L
HCO3 27.2 26.6 27.3
O2 Delivery Level vent
Microbiology
07/20/25 04:51 Nose MRSA Screen - Final
No Methicillin Resistant Staphylococcus aureus isolated.
[2025-07-22] MEDS: NEURONTIN 100 MG PO ×3 (08:33→22:21)
[2025-07-22] MEDS: PLAVIX 75 MG PO (08:33)
[2025-07-22] MEDS: LOW STRENGTH ASPIRIN 81 MG PO (08:33)
[2025-07-22] MEDS: PROTONIX 40 MG PO (08:33)
[2025-07-22] MEDS: MAGNESIUM OXIDE 400 MG PO ×2 (08:34→20:14)
[2025-07-22] MEDS: BACTROBAN 2% OINTMENT 1 APPLIC NASAL ×2 (08:34→20:14)
[2025-07-22] MEDS: SENOKOT 8.6 MG PO ×2 (08:34→20:14)
[2025-07-22] MEDS: PACERONE 200 MG PO ×3 (08:34→22:21)
[2025-07-22 09:11] LABS: Normal RBC Morphology Yes; Platelets Checked Yes
[2025-07-22 09:12] LABS: Total Cells Counted 100
[2025-07-22 09:59] LABS: Glucose - Point of Care 139 mg/dl (70-99)
--- NOTE | 2025-07-22 10:04 | PTCARENOTE ---
Patient received from railroad signal operator resting in bed, AAO x 3, states pain controlled at this time. NSR w/occasional PAC/PVC's noted, SaO2 @ 96% on 4lnc. RIJ Cordis/[place]-Iker catheter, R radial arterial lines present - leveled, flushed, and calibrated
w/good waveforms returned. Epicardial V-wire to pulse generator set to back up rate 30bpm, no spikes noted. Mediastinal chest tubes x 2, Y-connected to one pleurevac, L pleural chest tube to separate collection chamber, both to -20cm suction w/no
air leaks noted. Mccracken catheter to gravity. All procedural sites stable. Arterial line d/c'd as ordered. Patient assisted oob to chair x 2 assist, tolerated well. at bedside, both updated to plan of care, in agreement. See work list for full
assessment, interventions performed, and intravenous infusions and titrations.
[2025-07-22 12:05] LABS: Glucose - Point of Care 117 mg/dl (70-99)
--- NOTE | 2025-07-22 12:10 | PTCARENOTE ---
VS obtained, assessment stable, unchanged. Patient remains oob in chair, resting comfortably. Denies need for pain medication at this time. at bedside.
[2025-07-22] MEDS: LASIX 20 MG IV ×2 (13:23→22:40)
[2025-07-22] MEDS: NSS 500 IV (13:23)
[2025-07-22 14:03] LABS: Glucose - Point of Care 94 mg/dl (70-99)
--- NOTE | 2025-07-22 14:23 | PTCARENOTE ---
L pleural chest tube d/c'd as ordered. Patient tolerated well.
--- NOTE | 2025-07-22 15:07 | W.PN.ANS.POP ---
Anesthesia Post Operative
- Anesthesia Post Op Note
Vital Signs Stable-See Nursing Note: Yes
Airway Patent: Yes
Adequate Pain Control: Yes
Change in Mental Status: No
Current Postoperative Nausea & Vomiting: No
Anesthesia Complications: No
General Anesthetic Recall: No
Unplanned Admission: No
Post Op Hydration Adequate: Yes
[2025-07-22 16:06] LABS: Glucose - Point of Care 127 mg/dl (70-99)
[2025-07-22] MEDS: NOVOLOG FLEXPEN 4 UNITS SC (16:28)
[2025-07-22] MEDS: LIPITOR 40 MG PO (17:38)
[2025-07-22 18:14] LABS: Glucose - Point of Care 214 mg/dl (70-99)
[2025-07-22 19:11] LABS: Glucose - Point of Care 159 mg/dl (70-99)
[2025-07-22 20:07] LABS: Glucose - Point of Care 118 mg/dl (70-99)
[2025-07-22] MEDS: MUCINEX 1200 MG PO (20:14)
[2025-07-22] MEDS: REMOVE LIDOCAINE PATCH 1 PATCH REMOVE (20:14)
--- NOTE | 2025-07-22 21:05 | PTCARENOTE ---
Report received from TYLER Fernandez. Walking rounds done. Pt sitting in chair. Awake, alert, oriented x4. Speech clear. Equal strength x 4. C/O 7/10 severe sternal pain. Dilaudid 0.25 mg IV given. + relief from pain. BBS present. More decreased to L
mid-lobe, base. CDB, IS, Acapella valve encouraged. Mucinex 1200 mg po given as scheduled. + productive cough for thick, clear mucus. Moderate amount. Denies dyspnea, denies symptoms of an allergic reaction (denies swelling of tongue, airway).
Audible heart tones. Pt in SR with occasional PACs, PVCs. V wire present, insulated to chest. Dobutamine gtt at 4 mcg/kg/min. [place] Iker catheter present at 45 cm. CI done: 3.5. Mediastinal CTs x 2. For pulse and wound assessments, see flowsheets.
Abdomen soft, round. Normoactive bs x 4. Denies passing flatus. Mccracken catheter present. Clear, yellow urine. Hourly UO followed.
Pt helped back to bed with 2 RN assist. CHG bath done. Mouth care done. Face washed. Glycemic protocol maintained. Ongoing plan of care.
[2025-07-22 22:37] LABS: Glucose - Point of Care 114 mg/dl (70-99)
[2025-07-23] VITALS (34 sets, daily range): BP systolic 101–141; BP diastolic 51–90; BMI 35.4
[2025-07-23 00:29] LABS: Glucose - Point of Care 107 mg/dl (70-99)
--- NOTE | 2025-07-23 00:30 | PTCARENOTE ---
Repeat CI is 3.2 on Dobutamine gtt at 4 mcg/kg/min. Lasix 20 mg IV given at 2240 per order of FIBER PICKER. Pt c/o sternal pain. Roxicodone 5 mg and Flexeril 5 mg po given for pain. Ongoing plan of care.
[2025-07-23 02:38] LABS: Glucose - Point of Care 104 mg/dl (70-99)
--- NOTE | 2025-07-23 04:30 | PTCARENOTE ---
Labs drawn and sent. Repeat CI 3.3. Dobut remains at 4 mcg. Pt remains in SR with occasional PACs, PVCs. Pt repositioned in bed. Acapella and IS done. IS 1000 mls. Pt expectorated thick, clear sputum, small amount. Sats 98% on 2L/NC.
[2025-07-23] MEDS: ROXICODONE 5 MG PO ×2 (04:45→11:10)
[2025-07-23 04:51] LABS: Glucose - Point of Care 125 mg/dl (70-99)
[2025-07-23] MEDS: TYLENOL 975 MG PO ×3 (05:00→23:00)
[2025-07-23 05:07] LABS: Hematocrit 29.9 % (39.0-52.0); Hemoglobin 10.0 g/dL (13.0-18.0); Mean Corp Hgb Conc. 33.4 g/dL (33.0-37.0); Mean Corpuscular Volume 95.8 fL (80.0-94.0); Platelet Count 182 10^3/uL (130-400); Red Cell Dist. Width 13.3 % (11.5-14.5)
[2025-07-23 05:29] LABS: Blood Urea Nitrogen 20 mg/dl (9-20); Calcium 8.4 mg/dl (8.4-10.2); Carbon Dioxide 30 mmol/L (22-30); Chloride 101 mmol/L (98-107); Estimated Creatinine Clearance 102 ml/min; Glucose 108 mg/dl (70-99); Magnesium 2.1 mg/dl (1.6-2.3); Potassium 4.3 mmol/L (3.5-5.1); Sodium 137 mmol/L (135-145); eGFR > 60.00
--- NOTE | 2025-07-23 05:56 | W.PN.CT ---
Addendum entered and electronically signed by Elpidio Fay MD 07/23/25 09:11:
I saw and examined the patient.
The PA's note was reviewed and I agree with the note.
Comment:
Dobutamine to 3 today (wean by 1 q 12h if MvO2 > 60, CI > 2.0)
D/C pacing wire
D/C mediastinal CTs
Maintain hameed - diuresis today
OOB/IS/ambulate
Original Note:
Today's Communication / Plan
-
- POD #2
- Doing well. No major events overnight
- Tele review: NSR, PACs, occasional PVCs
- Gtt's: dobutamine @ 4, insulin
- PA 42/20, RA 14 CO 7.26 CI 3.3 SVR 760
- CTs: 2M 65/195 cc out in 12/24 hrs, pleural CT DCd
- wean down/off O2, IS use reinforced
- UOP 730/1365 cc out in 12/24 hrs, additional lasix given last night
- OOB, ambulate as tolerated, now down to 2 L NC
Assessment / Plan
-
NSTEMI/MVCAD s/p CABG x4 (In situ STERLING to LAD, Ao to RSVG to Diag, Ao to OM1, Ao to RSVG to PDA), DANIELLE ligation with Dr. Cano on 07/21/25 POD #2
Post MARY: improvement in EF (prior 30%), no MR, AI stable
NSTEMI
MVCAD
HFrEF
ICM
Angioedema (IgE mediated?)
HTN
HLD
DM2 A1c 6.7%
Prostate cancer s/p prostatectomy
acute post op respiratory insufficiency
acute post op anemia
Subjective
-
Date of Service: July 23, 2025
Objective Data
-
Lab Results
07/23/25 04:38
07/23/25 04:38
PT 16.9 Sec (11.4-14.6) H 07/21/25 13:03
INR 1.34 07/21/25 13:03
APTT 27.8 Sec (23.4-35.0) 07/21/25 13:03
Vital Signs
Vital Signs
Temp Pulse Resp BP Pulse Ox
98.2 F 89 17 115/64 97
07/23/25 05:00 07/23/25 05:00 07/23/25 05:00 07/23/25 05:00 07/23/25 05:00
CT Intake/Output/Weight
07/22/25 07/22/25 07/23/25
06:59 18:59 06:59
Intake Total 638.2 / 1317.0 1758.4 / 2221.4 463.0 / 2221.4
Output Total 645 / 1300 775 / 1570 795 / 1570
Balance -6.8 / 17.0 983.4 / 651.4 -332.0 / 651.4
SaO2: 97
Physical Exam
-
General: Awake and Oriented
Cardiovascular: Regular rate & rhythm, No Murmurs and No Rub
Respiratory: Clear and Equal
Sternum: Stable
Incision: Clean, Dry and Intact
Extremities: No Edema and No Erythema
Data Reviewed
-
Lab Results: Results Reviewed
Medications: Active Meds Reviewed
Chest X-Ray: Report Reviewed
ECG: Report Reviewed
--- NOTE | 2025-07-23 06:52 | PTCARENOTE ---
Pt helped to standing scale with 2 RNs, weighed. Then helped to chair. Denies dizziness, lightheadedness. VS done. See flowsheet. Report to TYLER Fernandez this am.
[2025-07-23 06:59] LABS: Glucose - Point of Care 99 mg/dl (70-99)
[2025-07-23] MEDS: FLEXERIL 5 MG PO (08:01)
[2025-07-23] MEDS: NEURONTIN 100 MG PO ×3 (08:01→23:00)
[2025-07-23] MEDS: MUCINEX 1200 MG PO ×2 (08:02→22:59)
[2025-07-23] MEDS: PACERONE 200 MG PO ×3 (08:02→23:00)
[2025-07-23] MEDS: MAGNESIUM OXIDE 400 MG PO ×2 (08:02→22:59)
[2025-07-23] MEDS: PLAVIX 75 MG PO (08:03)
[2025-07-23] MEDS: PROTONIX 40 MG PO (08:03)
[2025-07-23] MEDS: SENOKOT 8.6 MG PO ×2 (08:03→23:00)
[2025-07-23] MEDS: LOW STRENGTH ASPIRIN 81 MG PO (08:03)
[2025-07-23] MEDS: BACTROBAN 2% OINTMENT 1 APPLIC NASAL ×2 (08:04→22:58)
--- NOTE | 2025-07-23 08:10 | W.PN.INTV ---
Today's Communication / Plan
Recommendations
Given his spirometry findings with wheezing heard today and increased phlegm production, I will start scheduled DuoNebs and budesonide; will check outpatient full PFTs and follow up symptoms; may benefit from LABA/ICS
Up OOB as tolerated
Continue dobutamine drip and wean as tolerated while trending MVO2 with goal >65 and goal CI >2
Continue insulin drip, weaning off per protocol
Goal BG 110�140
Wean down supplemental O2, maintaining SpO2 >90-94%
Encourage incentive spirometer
Head Cd Reactor Operator service will continue to follow along while patient remains in CVICU; depending on respiratory status, Pulmonary service may follow along following downgrade Outpatient pulmonary office follow up will be arranged.
Assessment
-
Assessment: 70-year-old male with a past medical history of hypertension, hyperlipidemia, chronic HFrEF, DM type II, and prostate cancer s/p prostatectomy who presents from [facility] after presenting there with SOB + chest squeezing
discomfort. Also had cough and orthopnea without fevers or chills. He had gone to [place] and symptoms began after he returned home. Show's were abnormal at H with volume overload seen on imaging. He is diuresed and left heart catheterization
showed multivessel CAD. He was also noted to have cardiomyopathy with EF 25%. Patient transferred here for evaluation for CABG. Pulmonary service consulted on 07/20/2025, and spirometry performed on 07/20/2025 shows complete resolution of a
moderate obstructive lung defect with a significant bronchodilator response, consistent with asthma. Patient underwent CABG x 4 with left atrial appendage ligation on 07/21, and now patient managed in the CVICU with station inspector service is now
following.
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
Impression:
#Multivessel CAD with NSTEMI and acute HFrEF s/p CABG x 4 with left atrial appendage ligation (POD #2)
#Acute anemia
#Anaphylactic reaction (severe in the setting of asthma and lisinopril - unknown trigger for his anaphylaxis, although possibly something he ate)
#DM type II complicated by hyperglycemia (mild)
#Asthma
#Hypertension
#Hyperlipidemia
#ICM with acute on chronic HFrEF
#Obesity (BMI: 34.1)
Plan:
Patient was extubated on 07/21 and is currently breathing comfortably on 2 L/min nasal cannula saturating 96-97%
Continue to wean down supplemental O2 flow rate while keeping SpO2 >90-94%
If unable to wean to room air or if sats <96% on room air, then please check walking pulse oximetry prior to discharge to assess if he needs O2 upon discharge
prn nebulized bronchodilators - he is wheezing today (07/23) --> start budesonide and DuoNebs; outpatient full PFT and 6MWT to be scheduled
Encourage incentive spirometer q1hr while awake
Spirometry from 07/20/2025 reviewed and shows complete resolution of a moderate obstructive lung defect with a significant bronchial response, consistent with asthma
- No evidence of eosinophils on CBC
- Start nebs as above
- May need a LABA/ICS if Sx persist - this will be discussed in office
Patient had received epinephrine 0.5mg IM x2 on evening of 07/20, also received Pepcid 20mg IV, Solu-Medrol 60 mg IV and Benadryl IV
Continue Benadryl 50 mg IV q6h prn; steroids stopped
Considering that he had received epinephrine in a timely manner, he has a very low risk for recurrence at this point
Pulmonary artery catheter parameters will be followed
Pressors/antihypertensive/inotropes/diuretics will be provided as needed
Maintain MAP>65
Replete electrolytes with K>4, Mg>2
Monitor chest tube output (mediastinal chest tubes x 2 - to be removed later today)
Monitor hemoglobin
Monitor platelet count and coags
Transfuse blood products as needed to maintain Hb>7g/dL, plt>50k (given post-operative status)
CT surgery managing chest tubes
Monitor blood sugar to maintain euglycemia with goal BG 110-140
Insulin drip per protocol
Aspiration precautions
DVT prophylaxis
Early nutrition
Early mobilization
Head Cd Reactor Operator service will continue to follow along in CVICU. Depending on respiratory status, Pulmonary service may follow along following downgrade given his wheezing heard on exam on 07/23 with increased sinus/phlegm production. Outpatient
pulmonary office follow up will be arranged.
Critical care statement: A total of 37 minutes of critical care time was provided for this patient today. This includes management of ventilator, spontaneous breathing trial, arterial blood gases, pressors, of unstable vital signs, evaluation of the
patient at bedside, reviewing the patient's pertinent medical records including radiographs, microbiology, laboratory evaluations, and discussion with primary team and critical care nursing.
Subjective Dataa
Subjective Data
Date of Service:
Date of Service: July 23, 2025
Chief Complaint: Head Cd Reactor Operator Follow Up
Subjective:
Seen this AM at bedside. Resting in NAD. Endorsing runny nose with sinus congestion, also feeling SOB with wheezing at times. HR 93, BP 139/81, PAP 41/22 and breathing comfortably on 2L/min NC. Currently on dobutamine gtt at 3mcg/kg/min and
insulin gtt at 3.5 units/hr.
Review of Systems
General: Other (negative unless mentioned above)
Objective Data
Data Reviewed
Vital Signs / I&O / Oxygen:
Vital Signs
Temp Pulse Resp BP Pulse Ox
98.6 F 91 15 122/70 95
07/23/25 09:00 07/23/25 09:00 07/23/25 09:00 07/23/25 09:00 07/23/25 08:16
Intake and Output
07/22/25 07/23/25 07/24/25
06:59 06:59 06:59
Intake Total 1254.2 / 1317.0 2558.0 / 2591.7 120.4 / 120.4
Output Total 1265 / 1300 1615 / 1655 140 / 140
Balance -10.8 / 17.0 943.0 / 936.7 -19.6 / -19.6
SaO2 [CPAP/PSV] 93
SaO2 [SIMV] 94
SaO2 95
Nasal Cannula flow liters per 2
minute
Physical Exam
General: Respiratory Distress (negative), Comfortable, Chills (negative) and Sweats (negative)
HEENT: Normocephalic, Anicteric and Other (Thick neck)
Cardiovascular: S1-S2, Rub (positive) and Peripheral Edema (negative)
Respiratory: Wheeze (expiratory in middle lung berman bilaterally), Rhonchi (negative), Non-Labored Respirations, Stridor (negative) and Other (Coarse breath sounds heard bilaterally)
GI: Soft, Distended (Abdominal obesity), Non Tender and Normal Bowel Sounds
Neurology: Awake (Drowsy at times) and Tremors (negative)
Skin: Warm, Dry, Cyanosis (negative) and Jaundice (negative)
Labs/Micro/Reports
Lab Data
07/23/25 04:38
07/23/25 04:38
Microbiology
07/20/25 04:51 Nose MRSA Screen - Final
No Methicillin Resistant Staphylococcus aureus isolated.
--- NOTE | 2025-07-23 08:28 | PTCARENOTE ---
Patient received from shift coordinator resting oob in chair, AAO x 3. NSR via cm, SaO2 @ 95% on 2lnc. RIJ Cordis/[place]-Iker catheter present - leveled, flushed, and calibrated w/good waveforms returned. Epicardial V-wire, insulated. Mediastinal chest
tubes x 2, Y-connected to one pleurevac, no air leaks or crepitus noted on -20cm suction. Mccracken catheter to gravity. All procedural sites stable. Patient updated to plan of care for the day, in agreement. See work list for full assessment,
intravenous infusions and titrations, and interventions performed.
[2025-07-23 08:58] LABS: Glucose - Point of Care 114 mg/dl (70-99)
[2025-07-23] MEDS: NOVOLOG FLEXPEN 4 UNITS SC (09:16)
[2025-07-23] MEDS: NSS 500 IV (09:53)
[2025-07-23] MEDS: DOBUTREX 500 MG 250 IV (09:53)
[2025-07-23] MEDS: LASIX 20 MG IV (09:54)
[2025-07-23] MEDS: NOVOLIN R INSULIN INFUSION 100 IV (10:37)
[2025-07-23 11:05] LABS: Glucose - Point of Care 122 mg/dl (70-99)
--- NOTE | 2025-07-23 12:22 | PTCARENOTE ---
Epicardial V-wire d/c'd by LILIANA Brumfield. Bedrest maintained x 1 hour, VS obtained per protocol. No drainage noted from chest tubes. Mediastinal chest tubes d/c'd by this RN, patient tolerated well. Assisted back oob to chair.
[2025-07-23] MEDS: NOVOLOG FLEXPEN SC (12:35)
[2025-07-23 12:53] LABS: Glucose - Point of Care 107 mg/dl (70-99)
[2025-07-23] MEDS: LANTUS 0.1 UNITS SC (12:53)
[2025-07-23] MEDS: FARXIGA 10 MG PO (12:53)
[2025-07-23] MEDS: DUONEB 3 ML INH ×3 (12:56→23:25)
[2025-07-23] MEDS: PULMICORT INH (12:59)
[2025-07-23 16:50] LABS: Glucose - Point of Care 160 mg/dl (70-99)
[2025-07-23] MEDS: GLUCOPHAGE 500 MG PO (16:50)
[2025-07-23] MEDS: LIPITOR 40 MG PO (16:50)
[2025-07-23] MEDS: NOVOLOG FLEXPEN-MODERATE RESISTANCE 1 UNITS SC (16:51)
[2025-07-23] MEDS: PULMICORT 0.5 MG INH (19:12)
--- NOTE | 2025-07-23 21:00 | PTCARENOTE ---
Report received from TYLER Fernandez. Pt sitting in chair. Alert, awake, oriented x 4. Assisted back to bed. Equal strength x 4 extremities. Pt just given Duo Neb by RT. Coughing thick, khan sputum. IS and Acapella encouraged. BBS present. Expiratory
wheezes t/o. More decreased to L mid-lobe. Decreased B bases. Audible heart tones. Pt in SR, some PACs, PVCs. Dobut at 2 mcg. CI 3.2. Normotensive. Palpable DP and radial pulses. For wound assessments, see flowsheets. Belly slightly distended.
Nontender. hyperactive BS x 4. Passing little flatus. Mccracken intact, clear, yellow urine. ACHS accuchecks. Ongoing plan of care.
[2025-07-23] MEDS: REMOVE LIDOCAINE PATCH 1 PATCH REMOVE (22:59)
[2025-07-24] VITALS (19 sets, daily range): BP systolic 106–144; BP diastolic 67–84; PULSE 96; O2SAT 93; BMI 35.6
[2025-07-24 00:16] LABS: Glucose - Point of Care 137 mg/dl (70-99)
--- NOTE | 2025-07-24 01:05 | PTCARENOTE ---
Pt with B scatterred expiratory wheezing, c/o SOB. Sats maintained at 97% on 2L/NC. RT called, DuoNeb given. Pt abdomen distended, hyperactive bs x 4. Pt assisted to BSC to attempt to pass flatus. Large amount of flatus passed. Pt stated he felt
his breathing was better, states he feels his abdomen feels better, less distended. Sats 98% on 2L/NC. IS and Acapella valve encouraged. Pt helped back to bed. Attempting to go back to sleep.
--- NOTE | 2025-07-24 02:55 | PTCARENOTE ---
Dobutamine decreased to 1 mcg/kg/min. CI before decreasing Dobutamine gtt 3.1. Urine noted to be slightly blood-tinged. ROSIO Sahu made aware. No blood clots present.
--- NOTE | 2025-07-24 03:01 | W.PN.CT ---
Today's Communication / Plan
-
Dobutamine�wean�today, currently down to 1�for goal CI > 2�
Continue to wean O2�
Insulin drip DC�
Diuresis�(received�20 mg�of�Lasix)�= 2190 UO, net negative 290
DuoNeb�and budesonide�started for�wheezing�
Consider DC Low�cath�and hameed�
OOB/IS/ambulate�
Assessment / Plan
-
NSTEMI/MVCAD s/p CABG x4 (In situ STERLING to LAD, Ao to RSVG to Diag, Ao to OM1, Ao to RSVG to PDA), DANIELLE ligation with Dr. Cano on 07/21/25 POD #3
Post MARY: improvement in EF (prior 30%), no MR, AI stable
NSTEMI
MVCAD
HFrEF
ICM
Angioedema (IgE mediated?)
HTN
HLD
DM2 A1c 6.7%
Prostate cancer s/p prostatectomy
acute post op respiratory insufficiency
acute post op anemia
Subjective
-
Date of Service: July 24, 2025
Objective Data
-
PT 16.9 Sec (11.4-14.6) H 07/21/25 13:03
INR 1.34 07/21/25 13:03
APTT 27.8 Sec (23.4-35.0) 07/21/25 13:03
Vital Signs
Vital Signs
Temp Pulse Resp BP Pulse Ox
98.6 F 91 12 139/67 98
07/24/25 02:00 07/24/25 02:54 07/24/25 02:54 07/24/25 02:13 07/24/25 02:54
CT Intake/Output/Weight
07/23/25 07/23/25 07/24/25
06:59 18:59 06:59
Intake Total 799.6 / 2591.7 1196.6 / 1510.2 313.6 / 1510.2
Output Total 840 / 1655 1145 / 1999 855 / 2000
Balance -40.4 / 936.7 51.6 / -489.8 -541.4 / -489.8
SaO2: 98
Physical Exam
-
General: Awake
Cardiovascular: Regular rate & rhythm
Respiratory: Wheeze
Sternum: Stable
Incision: Clean, Dry and Intact
Extremities: Edema +1
--- NOTE | 2025-07-24 04:30 | PTCARENOTE ---
CI done on Dobutamine 1 mcg/kg/min. CI 3.5. Pt noted to have ~ 8 sec. of tachycardia, rate 130's (ST vs AF) at 0301. Pt sleeping. Sats 98% on 2L/NC Luis Alberto Graf NP notified. Labs drawn and sent.
[2025-07-24 04:33] LABS: Hematocrit 29.0 % (39.0-52.0); Hemoglobin 10.1 g/dL (13.0-18.0); Mean Corp Hgb Conc. 34.8 g/dL (33.0-37.0); Mean Corpuscular Volume 93.2 fL (80.0-94.0); Platelet Count 193 10^3/uL (130-400); Red Cell Dist. Width 13.2 % (11.5-14.5)
[2025-07-24 04:58] LABS: Blood Urea Nitrogen 16 mg/dl (9-20); Calcium 8.4 mg/dl (8.4-10.2); Carbon Dioxide 27 mmol/L (22-30); Chloride 100 mmol/L (98-107); Estimated Creatinine Clearance 118 ml/min; Glucose 126 mg/dl (70-99); Magnesium 2.1 mg/dl (1.6-2.3); Potassium 4.2 mmol/L (3.5-5.1); Sodium 133 mmol/L (135-145); eGFR > 60.00
--- NOTE | 2025-07-24 06:45 | PTCARENOTE ---
Pt helped up to chair with 2 RNs. Remains in SR, occasional PACs, PVCs. No other tachycardia present since last event. Sats 96-97% on 2L/NC. No c/o pain. Normotensive.
--- NOTE | 2025-07-24 07:06 | W.PN.CD ---
Today's Communication / Plan
-
Furosemide 40 mg IV and monitor response.
Wean dobutamine off.
Nebulizer treatments.
Start GDMT as his hemodynamics will tolerate.
Impression / Plan
-
Impression/Plan: 70 y/o male with HTN, HLD, DM transferred with NSTEMI and acute ischemic HFrEF, now s/p CABG.
#NSTEMI:
-Acute, diagnosis is threat to life.
-High sensitivity troponin = 736, 866 at [facility]; 0.613 here.
-S/P CABG x4 (STERLING to LAD, SVG to Diag, SVG to OM1, SVG to PDA) with Dr. Cano, 07/21/2025.
-Wean dobutamine. Currently at 1 mcg/kg/min.
-Continue aspirin, amiodarone.
-Weight continues to rise in spite of multiple doses of furosemide 20 mg IV. BP stable to mildly hypertensive. Increase furosemide to 40 mg IV and monitor.
-If weight does not fall with furosemide 40 mg IV, increase dose to 80 mg IV vs. bumetanide gtt.
#CAD, multivessel:
-Acute on chronic.
-CABG today.
-Secondary prevention post CABG.
#Cardiomyopathy/HFrEF:
-Acute, improving.
-GDMT as hemodynamics will tolerate:
-Diuretics: Furosemide 40 mg IV today.
-Beta hal: Hold beta hal until compensated.
-ACEI/ARB/ARNi: Hold until no longer requiring inotropes/pressors.
-MRA: Hold until no longer requiring inotropes/pressors.
-SGLT2i: Dapagliflozin 10 mg daily.
-ICD: Not currently indicated.
#Dyslipidemia:
-Chronic, stable.
-Total cholesterol = 188, LDL = 126, HDL = 35, Triglycerides = 136.
-Continue atorvastatin 40 mg daily.
-Goal LDL < 55.
#DM:
-Chronic, stable.
-HbA1c = 6.7%.
#Allergic reaction:
-Acute.
-Resolved with epinephrine, steroids, anti-histamines.
#Abnormal CT scan (CTA 07/18/25)/Pulmonary Wheeze:
-No PE, distal tracheal and bilateral bronchial wall thickening in keeping with tracheobronchitis, small b/l pleural effusions, bilateral diffuse mosaic attenuation which may represent air trapping, mild cardiomegaly, enlarged mediastinal lymph
nodes.
-Continue bronchodilator nebulizer treatments.
Critical Care Time = 40 minutes.
Subjective/Interval History:
Scattered wheezing on exam yesterday.
Started on albuterol/ipratropium nebulizer treatments yesterday.
Weight up 0.5 kg from yesterday, 4.4 kg from baseline.
BP is normal. CI consistently > 3.0 L/min/m2.
RA pressure is consistently > 10 mmHg.
Dobutamine down to 1 mcg/kg/min.
DATA:
CT Surgery, 07/21/2025:
Procedure(s) Performed:
1. Standard Sternotomy with Aortic and Right Atrial Cannulation
2. Internal Mammary Artery Harvesting, Left
3. Coronary artery bypass grafting x 4 (In situ STERLING to LAD, Ao to RSVG to Diag, Ao to OM1, Ao to RSVG to PDA)
4. Endoscopic vein harvesting of right greater saphenous vein
5. Transesophageal echocardiography
6. Placement of Temporary Ventricular Pacing Wires
7. Left atrial appendage ligation
Intraprocedural MARY, 07/21/2025:
CONCLUSIONS
Global hypokinesis of the left ventricle with eccentric hypertrophy. The LVEF
is 30%.
Normal right ventricular size and systolic function.
Mild aortic stenosis with mild/moderate aortic insufficiency.
Calcified mitral valve annulus with mild regurgitation.
The left atrial appendage is normal.
Normal size ascending aorta with grade III atheromatous disease of the arch and
descending thoracic segments.
POST OPERATIVE FINDINGS
S/P CABG x 4; DANIELLE exclusion
The left atrial appendage is no longer visible with color flow Doppler
confirming the absence of flow. The rhythm is sinus with pharmacological
support of dobutamine 5 mcg/kg/min. Grossly unchanged ejection fraction but the
ventricle is snappier on the inotropic support. The mitral regurgitation is now
trace. Otherwise unchanged exam.
Physical Exam
Vital Signs/Labs
Vital Signs
Temp Pulse Resp BP Pulse Ox
37.1 C 99 19 138/69 97
07/24/25 06:00 07/24/25 06:45 07/24/25 06:45 07/24/25 06:00 07/24/25 06:30
07/22/25 07/23/25 07/24/25
11:59 11:59 11:59
Actual Weight 107.5 kg 108.7 kg 109.2 kg
07/24/25 04:19
07/24/25 04:19
PT 16.9 Sec (11.4-14.6) H 07/21/25 13:03
INR 1.34 07/21/25 13:03
APTT 27.8 Sec (23.4-35.0) 07/21/25 13:03
Magnesium 2.1 mg/dl (1.6-2.3) 07/24/25 04:19
Triglycerides 136 mg/dl (10-149) 07/20/25 04:51
LDL Cholesterol, Calc 126 mg/dl 07/20/25 04:51
VLDL Cholesterol, Calc 27 mg/dl (0-30) 07/20/25 04:51
HDL Cholesterol 35 mg/dl 07/20/25 04:51
Physical Exam
Constitutional: No acute distress and Comfortable
EENT: Anicteric and Moist mucous membranes
Cardiovascular: Rhythm & rate is regular, Pedal edema present, S1S2 is normal and Murmur/rub/gallop absent
Respiratory: Respiratory effort normal and Wheeze Present
GI: Soft, Distention absent, Flat, Non tender and Normal bowel sounds
Neuro/Psych: AO x 3
Data Reviewed
-
Date of Service: July 24, 2025
Medical Decision Making: Reviewed Test Results, Independent Historian Assessment and Test Interpretation
EKG: Tracing Personally Visualized and interpreted and Report Reviewed by me
Echo: Report Reviewed by me
X-Ray/CT/US/MRI/NUC/PET: Image Personally Visualized and interpreted and Report Reviewed by me
Medical Tests (PFT, Pathology etc): Report Reviewed by me
Labs: Labs Reviewed by me
[2025-07-24] MEDS: DUONEB 3 ML INH (07:14)
[2025-07-24] MEDS: PULMICORT 0.5 MG INH (07:14)
[2025-07-24] MEDS: TYLENOL 975 MG PO ×2 (07:44→22:57)
--- NOTE | 2025-07-24 08:22 | PN.DE.MGMTRT ---
Insulin Management
- -
07/24/2025: Diabetes Management Follow up
70 year old male with MVCAD with NSTEMI and acute ischemic heart failure with reduced ejection fraction. PMH: HTN, HLD, [id number] controlled. States he does not monitor his blood sugars and doesn't have a glucose meter at home. A1C 6.9%, Cr 0.8,
eGFR >60
Pt is awake, alert, oriented, sitting up in bed, offers no complaints, able to discuss diabetes care plan.
Now POD #3 s/p CABG x5. Transitioned off glycemic protocol on 07/23 to oral diabetes therapy.
Glucose stable and in range, 107 to 160. FBG 127 V today.
Will make no changes to current regimen: Farxiga 10mg daily. Will NOT resume Metformin, pt had sever GI SE.
Discussed with Nurse. Will cont to follow. Pt will be seen by the Diabetes Nurse Educator to provide monitor instructions tomorrow.
Diabetes History
- -
Type of Diabetes: 2
Pre-Admission Diabetes Regimen
07/24/25
04:19
Creatinine 0.7
Lab Results
Hemoglobin A1c 6.9 % (4.0-5.6) H 07/20/25 04:51
Insulin Pump Settings
IP Diabetes Regimen
07/23/25 07/23/25 07/23/25
08:57 11:04 12:51
Glucose
POC Glucose 114 H 122 H 107 H
07/23/25 07/24/25 07/24/25
16:49 00:14 04:19
Glucose 126 H
POC Glucose 160 H 137 H
Meal type: Lunch
Meal type: Breakfast
Amount consumed: 60%
Amount consumed: 100%
Patient Education
[2025-07-24] MEDS: MUCINEX 1200 MG PO ×2 (08:58→20:40)
[2025-07-24] MEDS: PLAVIX 75 MG PO (08:58)
[2025-07-24] MEDS: FARXIGA 10 MG PO (08:58)
[2025-07-24] MEDS: LASIX 40 MG IV ×2 (08:59→16:45)
[2025-07-24] MEDS: BACTROBAN 2% OINTMENT 1 APPLIC NASAL ×2 (08:59→20:37)
[2025-07-24] MEDS: MAGNESIUM OXIDE 400 MG PO ×2 (08:59→20:38)
[2025-07-24] MEDS: SENOKOT 8.6 MG PO ×2 (08:59→20:38)
[2025-07-24] MEDS: LOW STRENGTH ASPIRIN 81 MG PO (08:59)
[2025-07-24] MEDS: NEURONTIN 100 MG PO ×3 (08:59→22:57)
[2025-07-24] MEDS: PACERONE 200 MG PO ×3 (08:59→22:57)
[2025-07-24] MEDS: PROTONIX 40 MG PO (08:59)
[2025-07-24] MEDS: GLUCOPHAGE PO (09:02)
[2025-07-24] MEDS: NOVOLOG FLEXPEN-MODERATE RESISTANCE SC ×3 (09:12→17:15)
[2025-07-24 09:13] LABS: Glucose - Point of Care 136 mg/dl (70-99)
--- NOTE | 2025-07-24 10:08 | PTCARENOTE ---
assumed care of pt from previous shift RN, sinus rhythm on tele, + peripheral pulses, +1 edema to lower extremities. Lungs diminished, pox 97% on RA. +bs, tolerating PO intake, hameed draining pink tinged urine. Right IJ cordis w swan floated to 45,
VSS. Surgical sites stable, PIVs flush easily. plan of care reviewed and questions encouraged.
--- NOTE | 2025-07-24 11:04 | CM ---
Reviewed chart. Met with Mr. Zacarias to review discharge plans. He states he is feeling okay. We reviewed a home visit by the Transitional Care Nurse. He is agreeable to a home visit. He states he has a stair lift to get to the second floor if
needed. He states his spouse will be home to assist in his care if needed. Will continue to see his current functional level to he will have any skilled care needs. Prior to admission he resides with his spouse in a three story home with three
steps to enter. He states he has a full flight of steps get to bedroom/full bathroom. He states he has a powder room on the first floor. He states prior to admission he was independent with ambulation and adls. He has a prescription plan and uses
[facility]. Medical work-up in progress. The discharge plan is to return home with his spouse and a home visit by the Transitional Care Nurse when medically stable.
--- NOTE | 2025-07-24 12:06 | W.PN.INTV ---
Addendum entered and electronically signed by Eda Cintron MD 07/24/25 16:12:
Patient transferring out of CVICU
Switch DuoNeb and budesonide to Symbicort 2 puffs twice a day scheduled, should continue at discharge
Asp Developer service will sign off, please call as needed
Original Note:
Today's Communication / Plan
Recommendations
- Diuresis per cardiology service
- Continue incentive spirometry for left lower atelectasis
- Asp Developer service will sign off once patient is transferred out of ICU
- Outpatient follow-up with pulmonary clinic
Assessment
-
Assessment: 70-year-old male with a past medical history of hypertension, hyperlipidemia, chronic HFrEF, DM type II, and prostate cancer s/p prostatectomy who presents from [facility] after presenting there with SOB + chest squeezing
discomfort. Also had cough and orthopnea without fevers or chills. He had gone to [place] and symptoms began after he returned home. Show's were abnormal at H with volume overload seen on imaging. He is diuresed and left heart catheterization
showed multivessel CAD. He was also noted to have cardiomyopathy with EF 25%. Patient transferred here for evaluation for CABG. Pulmonary service consulted on 07/20/2025, and spirometry performed on 07/20/2025 shows complete resolution of a
moderate obstructive lung defect with a significant bronchodilator response, consistent with asthma. Patient underwent CABG x 4 with left atrial appendage ligation on 07/21, and now patient managed in the CVICU with lacquer sprayer service is now
following.
Chronic conditions MATCH MAKER: Hypertension, hyperlipidemia, chronic HFrEF, DM type II, prostate cancer s/p prostatectomy
07/24 Overview: Patient currently saturating 93% on room air. MAP of 100, not requiring any pressors. Respiratory rate around 25 and heart rate around 93.
Impression:
#Multivessel CAD with NSTEMI and acute HFrEF s/p CABG x 4 with left atrial appendage ligation (POD #3)
#Acute anemia
#Anaphylactic reaction (severe in the setting of asthma and lisinopril - unknown trigger for his anaphylaxis, although possibly something he ate)
#DM type II complicated by hyperglycemia (mild)
#Asthma
#Hypertension
#Hyperlipidemia
#ICM with acute on chronic HFrEF
#Obesity (BMI: 34.1)
Plan:
Patient was extubated on 07/21 and is currently breathing comfortably on room air
Encourage incentive spirometer q1hr while awake
Continue Duoneb and scheduled Budesonide for hyperactive airway disease
CXR suggestive of LLL atelectasis and possibly trace effusion.
Spirometry from 07/20/2025 reviewed and shows complete resolution of a moderate obstructive lung defect with a significant bronchial response, consistent with asthma
- No evidence of eosinophils on CBC
- Continue nebs as above
- May need a LABA/ICS if Sx persist - this will be discussed in office
- Patient' son has Asthma as well.
Patient had received epinephrine 0.5mg IM x2 on evening of 07/20, also received Pepcid 20mg IV, Solu-Medrol 60 mg IV and Benadryl IV
Continue Benadryl 50 mg IV q6h prn; steroids stopped
Doing well
Maintain MAP>65
Replete electrolytes with K>4, Mg>2
Monitor blood sugar to maintain euglycemia with goal BG 110-140
Aspiration precautions
DVT prophylaxis
Early nutrition
Early mobilization
Critical care statement: A total of 37 minutes of critical care time was provided for this patient today. This includes management of ventilator, spontaneous breathing trial, arterial blood gases, pressors, of unstable vital signs, evaluation of the
patient at bedside, reviewing the patient's pertinent medical records including radiographs, microbiology, laboratory evaluations, and discussion with primary team and critical care nursing.
Subjective Dataa
Subjective Data
Date of Service:
Date of Service: July 24, 2025
Chief Complaint: Asp Developer Follow Up
Subjective:
Patient comfortably sitting in no acute distress.
Review of Systems
Genitourinary: Other (All 14 systems reviewed and negative except as stated above in the history of present illness.)
Objective Data
Data Reviewed
Vital Signs / I&O / Oxygen:
Vital Signs
Temp Pulse Resp BP Pulse Ox
99.3 F 94 28 120/69 95
07/24/25 11:00 07/24/25 11:24 07/24/25 11:24 07/24/25 11:00 07/24/25 11:00
Intake and Output
07/23/25 07/24/25 07/25/25
06:59 06:59 06:59
Intake Total 2558.0 / 2591.7 1609.8 / 1609.8 170 / 170
Output Total 1615 / 1655 2295 / 2295 650 / 650
Balance 943.0 / 936.7 -685.2 / -685.2 -480 / -480
SaO2 [CPAP/PSV] 93
SaO2 [SIMV] 94
SaO2 95
Nasal Cannula flow liters per 3
minute
Physical Exam
General: Respiratory Distress (negative), Comfortable, Chills (negative) and Sweats (negative)
HEENT: Normocephalic, Anicteric and Other (Thick neck)
Cardiovascular: S1-S2, Rub (positive) and Peripheral Edema (negative)
Respiratory: Wheeze (expiratory in middle lung berman bilaterally), Rhonchi (negative), Non-Labored Respirations, Stridor (negative) and Other (Coarse breath sounds heard bilaterally)
GI: Soft, Distended (Abdominal obesity), Non Tender and Normal Bowel Sounds
Neurology: Awake (Drowsy at times) and Tremors (negative)
Skin: Warm, Dry, Cyanosis (negative) and Jaundice (negative)
Labs/Micro/Reports
Lab Data
07/24/25 04:19
07/24/25 04:19
Microbiology
07/20/25 04:51 Nose MRSA Screen - Final
No Methicillin Resistant Staphylococcus aureus isolated.
--- NOTE | 2025-07-24 12:21 | PTCARENOTE ---
Hecker and hameed removed without incident.
[2025-07-24 13:57] LABS: Glucose - Point of Care 145 mg/dl (70-99)
[2025-07-24] MEDS: TYLENOL PO (14:04)
[2025-07-24] MEDS: NSS IV (14:04)
[2025-07-24 17:13] LABS: Glucose - Point of Care 135 mg/dl (70-99)
[2025-07-24] MEDS: LIPITOR 40 MG PO (18:07)
[2025-07-24] MEDS: SYMBICORT 160/4.5 MCG INHALER 2 PUFF INH (19:34)
[2025-07-24] MEDS: KCL 20 MEQ PO (20:38)
[2025-07-24] MEDS: PACERONE 400 MG PO (20:39)
[2025-07-24] MEDS: REMOVE LIDOCAINE PATCH 1 PATCH REMOVE (20:40)
[2025-07-24] MEDS: LOPRESSOR 12.5 MG PO (20:43)
--- NOTE | 2025-07-24 21:00 | PTCARENOTE ---
Patient received OOB in chair. Patient A+A+Ox3. No neurological deficits noted. No c/o headache, dizziness or lightheadedness. Room air. SpO2 95%. Occasional to frequent cough - Productive - Small, thick tannish secretions. No c/o SOB. Mild
NOGUEIRA. Sinus Rhythm. Occasional PAC and PVC. Heart rate 90's. Blood pressure 125/75 (90). Patient with no c/o chest pain, pressure or discomfort. Abdomen soft, round, nontender. No BM. Positive flatus. No c/o nausea. No vomiting. Voiding
without difficulty. Sternal incision - Intact - Open to air. Chest tube sites intact - Open to air. Right groin puncture site intact. Right lower extremity incision intact. Positive pulses. Bilateral lower extremity edema. Patient with no c/o
back or flank pain. Right I.J. Cordis. Assessment as documented.
[2025-07-24 22:49] LABS: Glucose - Point of Care 154 mg/dl (70-99)
[2025-07-25] VITALS (8 sets, daily range): BP systolic 105–154; BP diastolic 66–82; PULSE 97; O2SAT 95; BMI 35.2
--- NOTE | 2025-07-25 00:30 | PTCARENOTE ---
Patient sleeping without difficulty. No further changes from previous assessment.
--- NOTE | 2025-07-25 04:31 | W.PN.CT ---
Addendum entered and electronically signed by PERICO Knight 07/25/25 15:33:
CDI QUERY RESPONSE
Acute pulmonary insufficiency (following surgery)
Original Note:
Today's Communication / Plan
-
Plan:
-No major issues overnight. Hemodynamically and neurologically intact
-Off all drips, weaned off Dobutamine gtt yesterday 07/24
-Resumed BB, Toprol XL
-Cordis kinked, unable to obtain MVO2 off cordis this AM, will d/c
-AM labs pending, replete electrolytes PRN
-Cont. GDMT for HFrEF as BP permits (currently on Farxiga, Toprol XL, Lasix)
-Cont. current meds (ASA, Plavix, Lipitor, GDMT as BP permits)
-OOB into chair/Ambulate
-F/U 2-view cxr
-Encourage use of IS
-Home likely tomorrow, possible home with [facility] (has had PVC's postop)
Assessment / Plan
-
NSTEMI/MVCAD s/p CABG x4 (In situ STERLING to LAD, Ao to RSVG to Diag, Ao to OM1, Ao to RSVG to PDA), DANIELLE ligation with Dr. Cano on 07/21/25 POD #4
Post MARY: improvement in EF (prior 30%), no MR, AI stable
NSTEMI
MVCAD
HFrEF
ICM
Angioedema (IgE mediated?)
HTN
HLD
DM2 A1c 6.7%
Prostate cancer s/p prostatectomy
-Acuter postop blood loss/Anemia (stable without blood transfusion)
-Acute postop hypoxemia
-Acute postop atelectasis/left pleural effusion
-Acute postop hypovolemia with subsequent hypervolemia
Discussed patient care with: Cardiology, Nursing, Respiratory Therapy, Pharmacy and Care Team
Subjective
-
Date of Service: July 25, 2025
Pt c/o mild incisional pain, otherwise feels well. Ambulating halls without difficulty
Objective Data
-
PT 16.9 Sec (11.4-14.6) H 07/21/25 13:03
INR 1.34 07/21/25 13:03
APTT 27.8 Sec (23.4-35.0) 07/21/25 13:03
Vital Signs
Vital Signs
Temp Pulse Resp BP Pulse Ox
98.8 F 76 18 123/76 95
07/24/25 22:45 07/25/25 03:00 07/24/25 22:45 07/24/25 22:57 07/24/25 22:45
CT Intake/Output/Weight
07/24/25 07/24/25 07/25/25
06:59 18:59 06:59
Intake Total 413.2 / 1609.8 180 / 510 330 / 510
Output Total 1150 / 2295 2450 / 3250 800 / 3250
Balance -736.8 / -685.2 -2270 / -2740 -470 / -2740
SaO2: 95 (RA)
Physical Exam
-
General: Awake, Oriented and AOx3
Cardiovascular: Regular rate & rhythm, No Murmurs, No Rub and No Gallop
Respiratory: Decreased Breath Sounds (at bases, otherwise clear)
Sternum: Stable
Incision: Clean, Dry, Intact and Dressing Intact
Extremities: Other (+trace edema)
Data Reviewed
-
Lab Results: Results Reviewed
Medications: Active Meds Reviewed
Chest X-Ray: Report Reviewed and Image Reviewed
ECG: Report Reviewed and Image Reviewed
[2025-07-25] MEDS: TYLENOL PO ×2 (05:00→14:19)
--- NOTE | 2025-07-25 06:30 | PTCARENOTE ---
Patient A+A+Ox3. No neurological deficits noted. No c/o pain or discomfort. AM labs collected and sent. Right Steven SANCHEZ attempted to obtain mixed venous - No blood return. Patient given CHG bath and linens changed. Patient ambulated to
bathroom with minimal assistance. Sternal precautions. Voided 700 ml. Positive BM. Washed face. Brushed teeth. Standing scale weight 108.2 kg. Resting in chair watching television. Assessment/Interventions as documented.
[2025-07-25 06:35] LABS: Hematocrit 32.1 % (39.0-52.0); Hemoglobin 11.0 g/dL (13.0-18.0); Mean Corp Hgb Conc. 34.3 g/dL (33.0-37.0); Mean Corpuscular Volume 90.7 fL (80.0-94.0); Platelet Count 284 10^3/uL (130-400); Red Cell Dist. Width 12.9 % (11.5-14.5)
[2025-07-25 06:40] LABS: Blood Urea Nitrogen 17 mg/dl (9-20); Calcium 8.5 mg/dl (8.4-10.2); Carbon Dioxide 29 mmol/L (22-30); Chloride 98 mmol/L (98-107); Estimated Creatinine Clearance 103 ml/min; Glucose 126 mg/dl (70-99); Magnesium 2.2 mg/dl (1.6-2.3); Potassium 3.9 mmol/L (3.5-5.1); Sodium 134 mmol/L (135-145); eGFR > 60.00
[2025-07-25] MEDS: SYMBICORT 160/4.5 MCG INHALER 2 PUFF INH ×2 (07:40→20:32)
[2025-07-25 08:28] LABS: Glucose - Point of Care 131 mg/dl (70-99)
--- NOTE | 2025-07-25 08:33 | PN.DE.MGMTRT ---
Insulin Management
- -
07/25/2025: Diabetes Management Follow up
Patient admitted with MVCAD with NSTEMI and acute ischemic heart failure with reduced ejection fraction. PMH: HTN, HLD, [id number] controlled, renal stones, prostate CA - prostatectomy. States he does not monitor his blood sugars and doesn't have a
glucose meter at home. A1C 6.9%, Cr 0.8, eGFR >60
Pt is awake, alert, oriented, out of bed in chair, offers no complaints, able to discuss diabetes care plan. at bedside very supportive.
Now POD #4 s/p CABG x4. Transitioned off glycemic protocol on 07/23 to oral diabetes therapy.
Glucose stable and in range, 107 to 160. FBG 127 V today.
Will make no changes to current regimen: Farxiga 10mg daily. (Jardiance is covered at [facility]). Will NOT resume Metformin, pt had severe GI SE.
Discussed with Nurse. Will cont to follow.
Pt will be seen by the Diabetes Nurse Educator to provide monitor instructions.
Diabetes History
- -
Type of Diabetes: 2
Pre-Admission Diabetes Regimen
07/25/25
05:51
Creatinine 0.8
Lab Results
Hemoglobin A1c 6.9 % (4.0-5.6) H 07/20/25 04:51
Insulin Pump Settings
IP Diabetes Regimen
07/24/25 07/24/25 07/24/25
09:12 13:56 17:11
Glucose
POC Glucose 136 H 145 H 135 H
07/24/25 07/25/25 07/25/25
22:47 05:51 08:27
Glucose 126 H
POC Glucose 154 H 131 H
Meal type: Dinner
Amount consumed: 75%
Patient Education
--- NOTE | 2025-07-25 08:55 | W.PN.CD ---
Today's Communication / Plan
-
cont IV lasix
titrate GDMT
Impression / Plan
-
Impression/Plan: 70 y/o male with HTN, HLD, DM transferred with NSTEMI and acute ischemic HFrEF, now s/p CABG.
#NSTEMI:
-S/P CABG x4 (STERLING to LAD, SVG to Diag, SVG to OM1, SVG to PDA) with Dr. Cano, 07/21/2025.
-ASA/Plavix
#CAD, multivessel:
-Acute on chronic.
-CABG today.
-Secondary prevention post CABG.
#Cardiomyopathy/HFrEF: EF 30-35%
-Acute
-GDMT as hemodynamics will tolerate:
-Diuretics: Furosemide 40 mg IV bid, with close monitoring of labs/tele
-Beta hal: started Toprol XL 25mg daily: titrate as able
-ACEI/ARB/ARNi: assess for entresto next
-MRA: assess to add aldactone after entresto
-SGLT2i: Dapagliflozin 10 mg daily.
-ICD: Repeat echo in 3 months to advise.
# NSVT
-8 beats
-Toprol XL and amiodarone
-if recurs, will need to evaluate for LifeVest
#Dyslipidemia:
-Chronic, stable.
-Total cholesterol = 188, LDL = 126, HDL = 35, Triglycerides = 136.
-Continue atorvastatin 40 mg daily.
-Goal LDL < 55.
#DM:
-Chronic, stable.
-HbA1c = 6.7%.
#Allergic reaction:
-Acute.
-Resolved with epinephrine, steroids, anti-histamines.
#Abnormal CT scan (CTA 07/18/25)/Pulmonary Wheeze:
-No PE, distal tracheal and bilateral bronchial wall thickening in keeping with tracheobronchitis, small b/l pleural effusions, bilateral diffuse mosaic attenuation which may represent air trapping, mild cardiomegaly, enlarged mediastinal lymph
nodes.
-Continue bronchodilator nebulizer treatments.
DATA:
CT Surgery, 07/21/2025:
Procedure(s) Performed:
1. Standard Sternotomy with Aortic and Right Atrial Cannulation
2. Internal Mammary Artery Harvesting, Left
3. Coronary artery bypass grafting x 4 (In situ STERLING to LAD, Ao to RSVG to Diag, Ao to OM1, Ao to RSVG to PDA)
4. Endoscopic vein harvesting of right greater saphenous vein
5. Transesophageal echocardiography
6. Placement of Temporary Ventricular Pacing Wires
7. Left atrial appendage ligation
Intraprocedural MARY, 07/21/2025:
CONCLUSIONS
Global hypokinesis of the left ventricle with eccentric hypertrophy. The LVEF
is 30%.
Normal right ventricular size and systolic function.
Mild aortic stenosis with mild/moderate aortic insufficiency.
Calcified mitral valve annulus with mild regurgitation.
The left atrial appendage is normal.
Normal size ascending aorta with grade III atheromatous disease of the arch and
descending thoracic segments.
POST OPERATIVE FINDINGS
S/P CABG x 4; DANIELLE exclusion
The left atrial appendage is no longer visible with color flow Doppler
confirming the absence of flow. The rhythm is sinus with pharmacological
support of dobutamine 5 mcg/kg/min. Grossly unchanged ejection fraction but the
ventricle is snappier on the inotropic support. The mitral regurgitation is now
trace. Otherwise unchanged exam.
Physical Exam
Vital Signs/Labs
Vital Signs
Temp Pulse Resp BP Pulse Ox
97.9 F 90 16 124/75 93
07/25/25 04:35 07/25/25 07:43 07/25/25 07:43 07/25/25 04:35 07/25/25 07:43
07/24/25 07/25/25 07/26/25
06:59 06:59 06:59
Actual Weight 109.2 kg 108.2 kg
07/25/25 05:51
07/25/25 05:51
PT 16.9 Sec (11.4-14.6) H 07/21/25 13:03
INR 1.34 07/21/25 13:03
APTT 27.8 Sec (23.4-35.0) 07/21/25 13:03
Magnesium 2.2 mg/dl (1.6-2.3) 07/25/25 05:51
Triglycerides 136 mg/dl (10-149) 07/20/25 04:51
LDL Cholesterol, Calc 126 mg/dl 07/20/25 04:51
VLDL Cholesterol, Calc 27 mg/dl (0-30) 07/20/25 04:51
HDL Cholesterol 35 mg/dl 07/20/25 04:51
Physical Exam
Constitutional: No acute distress and Comfortable
EENT: Moist mucous membranes
Cardiovascular: Rhythm & rate is regular, Systolic murmur absent, Pedal edema present and JVD present
Respiratory: Respiratory effort normal and Lungs clear to auscul.
Neuro/Psych: AO x 3
Data Reviewed
-
Date of Service: July 25, 2025
EKG: Other (Tele: SR 80s-90s, 8 beats NSVT)
Echo: Report Reviewed by me
Labs: Labs Reviewed by me
[2025-07-25] MEDS: TOPROL XL 25 MG PO ×2 (08:56→20:12)
[2025-07-25] MEDS: LOW STRENGTH ASPIRIN 81 MG PO (08:56)
[2025-07-25] MEDS: PROTONIX 40 MG PO (08:56)
[2025-07-25] MEDS: MAGNESIUM OXIDE 400 MG PO ×2 (08:56→20:11)
[2025-07-25] MEDS: SENOKOT 8.6 MG PO (08:57)
[2025-07-25] MEDS: FARXIGA 10 MG PO (08:57)
[2025-07-25] MEDS: PLAVIX 75 MG PO (08:57)
[2025-07-25] MEDS: MUCINEX 1200 MG PO ×2 (08:57→20:11)
[2025-07-25] MEDS: NEURONTIN 100 MG PO ×3 (08:57→21:22)
[2025-07-25] MEDS: KCL 20 MEQ PO (08:57)
[2025-07-25] MEDS: LASIX 40 MG IV ×2 (08:58→17:05)
[2025-07-25] MEDS: BACTROBAN 2% OINTMENT 1 APPLIC NASAL (09:06)
[2025-07-25] MEDS: NOVOLOG FLEXPEN-MODERATE RESISTANCE SC ×2 (09:06→17:15)
--- NOTE | 2025-07-25 09:51 | PTCARENOTE ---
assumed care of pt from previous shift RN, sinus rhythm on tele, + peripheral pulses, +1 edema to bilateral lower extremities. Lungs diminished, course at times, harsh cough, pox 93% on RA. Coughing and deep breathing encouraged. Surgical sites
stable. Cordis removed as ordered. PIV flushes easily. +bs, tolerating PO intake, voids yellow. Plan of care reviewed and questions encouraged.
[2025-07-25] MEDS: NOVOLOG FLEXPEN-MODERATE RESISTANCE 1 UNITS SC (12:34)
[2025-07-25 12:35] LABS: Glucose - Point of Care 181 mg/dl (70-99)
[2025-07-25] MEDS: NSS IV (12:45)
--- NOTE | 2025-07-25 12:56 | CM ---
Reviewed chart. Asked to check on co-pays for Farxiga and Jardiance. He has two prescription plans. With his Insurance his co-pay for Jardiance is $38.00 for mail order 90 supply and $43.00 a month at retail. His Farxiga at [facility] needs
a prior auth., P.A. phone number is [phone])If approved her co-pay would $76.00 for mail order and retail. Telephone elliot to [employer] to check on co-pay for Jardiance, Farxiga and generic Farxiga. All of them need a prior auth. The prior
auth. phone number is [phone]) and Fax number is [phone]) . [employer] will not give co-pay information until Prior auth approved. Met with and Mrs. Zacarias to review above They are agreeable to using and their co-pay.
Placed the one month coupon for Jardiance in his red discharge folder. We also review a home visit by the Transitional Care Nurse. He is agreeable to a home visit. He has a stair lift to get to the second floor if needed. His spouse will be home
to assist in his care if needed. Will continue to see his current functional level to he will have any skilled care needs. Prior to admission he resides with his spouse in a three story home with three steps to enter. He states he has a full
flight of steps get to bedroom/full bathroom. He states he has a powder room on the first floor. He states prior to admission he was independent with ambulation and adls. He has a prescription plan and uses [facility]. Medical work-up in
progress. The discharge plan is to return home with his spouse and a home visit by the Transitional Care Nurse when medically stable.
--- NOTE | 2025-07-25 13:00 | PTCARENOTE ---
pt tolerated cardiac rehab, VSS, sinus rhythm maintained on tele. Pt denies pain.
--- NOTE | 2025-07-25 15:12 | PTCARENOTE ---
07/25/2025 DIABETES EDUCATION CONSULTATION
I met with patient and his to review diabetes management. He is currently inpatient with a NSTEMI.
He has had DM2 for 2 years, HbA1c is 6.0%.
I educated on physiology of T2D, organ damage, managing with medications, monitoring BG, nutrition, activity, sleep and managing stress. I reinforced signs of hyperglycemia, hypoglycemia and hypoglycemia protocol; BS parameters and recommended HbA1c
goals, glucometer and CGM instructions, glucose tracker, medic alert bracelet and outpatient DSME program. Written material provided.
I provided patient with a [employer]365 Next Gen glucometer sample kit. Provided verbal instructions on proper blood sugar testing technique, and demonstration with his participation.
Encouraged patient to follow up with his PCP for post d/c appointment and to monitor medication and blood glucose levels. Provided list of endocrinologists if desired, to contact insurance company to verify in network status. Patient verbalized
understanding.
--- NOTE | 2025-07-25 15:25 | PN.CDI ---
CDI
- -
CDI:
Physician Documentation Request
Admit Date: 07/19/25 22:[address] Surgery,
Please review the following and provide your response in the progress notes.
Clinical Indicators:
- 07/21 CABG x 4, DANIELLE ligation
- 07/20 Pulmonary Function test 'suggestion of restrictive lung defect'
- Documented VS 2-3L O2 (07/22-07/24)
- 07/25 CT Surg indicates hypoxemia
- Patient BMI 35.2
Please clarify which of the following accurately represents the patient's respiratory status following surgery:
Acute hypoxic respiratory failure
Acute pulmonary insufficiency (following surgery)
Hypoxemia only
Other (please specify)
Additional information for Pulmonary Insufficiency:
Consider when patients require intermediate card tender oxygen therapy postoperatively
Weaned off oxygen initially then requiring supplemental oxygen
No other definitive diagnosis to support the need for oxygen (COPD exac, CHF etc.)
Unable to wean from vent
When criteria for respiratory failure not present
May extend stay or require additional resources; may need home O2
Additional information for Respiratory Failure:
Recognized criteria for Respiratory Failure (Source: [facility] Hospitalist Aug 2013)
ABGs: (1 or more) Symptoms Indicate:
1. p)2 <60 or RA SPO2 <91% on RA 1. Tachypnea, SOB, dyspnea 1. Type as:
2. pCO2 50 and pH <7.35 2. Use of accessory muscles a. Hypoxic
3. pO2 decrease of pCO2 increase by 3. Pallor or cyanosis b. Hypercapnic
10 mmHg from baseline if known 4. Anxiety or restlessness 2. If due to procedure or due to another cause
5. Unable to speak in full sentences
Supplemental O2 of > 40% Intubation is not required
Use of terms such as suspected, likely, concern for, or probable (associated with a specific diagnosis that is being evaluated, monitored, or treated as if it exists) are acceptable and can be coded in the inpatient setting, when documented at the
time of discharge.
Thank you,
Jessica Morales RN
CDI Specialist
Please use your independent medical judgment in providing your response.
[2025-07-25] MEDS: PACERONE 200 MG PO ×2 (17:05→21:22)
[2025-07-25] MEDS: LIPITOR 40 MG PO (17:05)
--- NOTE | 2025-07-25 17:05 | PTCARENOTE ---
pt tolerated shower, VSS, sinus rhythm maintained on tele.
[2025-07-25 17:15] LABS: Glucose - Point of Care 126 mg/dl (70-99)
--- NOTE | 2025-07-25 20:00 | PTCARENOTE ---
assumed care of pt from previous RN. pt A&Ox4, resting in bed at time of assessment. SR on tele-monitor, occasional PVCs. POX 93% on RA. abd s/n, round, obese. voiding clear, yellow colored urine. all surgical sites stable, CDI. PIV intact. plan of
care discussed w/ pt, pt in agreement. see worklist for complete nursing assessment, interventions, VS, and I&Os.
[2025-07-25] MEDS: KCL 40 MEQ PO (20:10)
[2025-07-25] MEDS: SENOKOT PO (20:11)
[2025-07-25] MEDS: REMOVE LIDOCAINE PATCH REMOVE (20:21)
[2025-07-25] MEDS: TYLENOL 975 MG PO (21:22)
[2025-07-25 21:27] LABS: Glucose - Point of Care 161 mg/dl (70-99)
[2025-07-26] VITALS (7 sets, daily range): BP systolic 112–137; BP diastolic 61–95; PULSE 80; O2SAT 96–99; BMI 34.5
--- NOTE | 2025-07-26 00:45 | PTCARENOTE ---
assessment remains unchanged. VSS.
--- NOTE | 2025-07-26 03:50 | PTCARENOTE ---
no acute changes. VSS.
--- NOTE | 2025-07-26 04:36 | W.PN.CT ---
Today's Communication / Plan
-
Plan:
-No major issues overnight. Hemodynamically and neurologically intact
-Off all drips, weaned off Dobutamine gtt on 07/24
-Tolerating resumption of BB. Noted to be tachycardic with ambulation, will increase Toprol from 25mg QDaily to 50 mg Qdaily
-Diuresing well, 24hrs u/o 5050 mL
-Will reduce Lasix from 40 mg IV BID to 40 mg PO QDaily, Wt is up 3 lbs from preop
-Cont. GDMT for HFrEF as BP permits (currently on Farxiga, Toprol XL, Lasix)
-Cont. current meds (ASA, Plavix, Lipitor, GDMT as BP permits)
-OOB into chair/Ambulate
-Encourage use of IS
-Temporary PW d/c'd on 07/23
-Allergy workup as an outpt.
-Has had NSVT postop, none overnight, will discuss home with [employer]
-Home today
Assessment / Plan
-
NSTEMI/MVCAD s/p CABG x4 (In situ STERLING to LAD, Ao to RSVG to Diag, Ao to OM1, Ao to RSVG to PDA), DANIELLE ligation with Dr. Cano on 07/21/25 POD #5
Post MARY: improvement in EF (prior 30%), no MR, AI stable
NSTEMI
MVCAD
HFrEF
ICM
Angioedema (IgE mediated?)
HTN
HLD
DM2 A1c 6.7%
Prostate cancer s/p prostatectomy
-Acuter postop blood loss/Anemia (stable without blood transfusion)
-Acute postop hypoxemia
-Acute postop pulmonary insufficiency
-Acute postop atelectasis/left pleural effusion
-Acute postop hypovolemia with subsequent hypervolemia
-Acute postop hyponatremia
-Acute postop NSVT/tachycardia
Discussed patient care with: Cardiology, Nursing, Respiratory Therapy, Pharmacy and Care Team
Subjective
-
Date of Service: July 26, 2025
Pt c/o productive cough last night, better this morning. Ambulating halls without difficulty
Objective Data
-
Lab Results
07/25/25 05:51
PT 16.9 Sec (11.4-14.6) H 07/21/25 13:03
INR 1.34 07/21/25 13:03
APTT 27.8 Sec (23.4-35.0) 07/21/25 13:03
Vital Signs
Vital Signs
Temp Pulse Resp BP Pulse Ox
98.5 F 78 20 137/74 96
07/26/25 03:37 07/26/25 03:37 07/26/25 03:37 07/26/25 03:37 07/26/25 03:[address]
CT Intake/Output/Weight
07/25/25 07/25/25 07/26/25
06:59 18:59 06:59
Intake Total 340 / 520 150 / 150
Output Total 1500 / 3950 2700 / 4350 1650 / 4350
Balance -1160 / -3430 -2550 / -4200 -1650 / -4200
SaO2: 96 (RA)
Physical Exam
-
General: Awake, Oriented and AOx3
Cardiovascular: Regular rate & rhythm, No Murmurs, No Rub and No Gallop
Respiratory: Decreased Breath Sounds (at bases, otherwise clear)
Sternum: Stable
Incision: Clean, Dry, Intact and Dressing Intact
Extremities: Other (+trace edema)
Data Reviewed
-
Lab Results: Results Reviewed
Medications: Active Meds Reviewed
Chest X-Ray: Report Reviewed and Image Reviewed
ECG: Report Reviewed and Image Reviewed
[2025-07-26] MEDS: TYLENOL 975 MG PO (05:07)
[2025-07-26 06:55] LABS: Calcium 8.3 mg/dl (8.4-10.2); Carbon Dioxide 32 mmol/L (22-30); Chloride 97 mmol/L (98-107); Estimated Creatinine Clearance 90 ml/min; Glucose 137 mg/dl (70-99); Magnesium 2.2 mg/dl (1.6-2.3); Potassium 3.8 mmol/L (3.5-5.1); Sodium 134 mmol/L (135-145); eGFR > 60.00
[2025-07-26 07:08] LABS: Blood Urea Nitrogen 20 mg/dl (9-20)
[2025-07-26] MEDS: SYMBICORT 160/4.5 MCG INHALER 2 PUFF INH (07:13)
[2025-07-26 07:50] LABS: Glucose - Point of Care 134 mg/dl (70-99)
--- NOTE | 2025-07-26 07:53 | W.PN.CD ---
Today's Communication / Plan
-
stable . reaminsin sinus.
continue curren therapy
adtional optimizationof GDMT as outpatient
Impression / Plan
-
Impression/Plan: 70 y/o male with HTN, HLD, DM transferred with NSTEMI and acute ischemic HFrEF, now s/p CABG.
#S/P CABG x4 (STERLING to LAD, SVG to Diag, SVG to OM1, SVG to PDA) with Dr. Cano, 07/21/2025.
- in NSR
- post op tx per CT surgery
-ASA/Plavix
.
# NSTMI - transferred to for CABG
#Cardiomyopathy/HFrEF: EF 30-35%
-Acute
-GDMT as patient tolerates as he recovers from CCABG
-Diuretics: Furosemide 40 mg IV bid, with close monitoring of labs/tele
-Beta hal: Toprol XL 25mg daily: titrate as able
-ACEI/ARB/ARNi: assess for entresto/ARB or RJ I next as BP will tolerate
( note that CT surgery has already initated lisinopril . ill see how BP tolerates . eventually would transition to Entresto. Can assess cost if not done so already)
-MRA: assess to add aldactone after entresto/ ARB or RJ I
-SGLT2i: Dapagliflozin 10 mg daily.
-ICD: Repeat echo in 3 months
# NSVT
-8 beats earlier this admit without recurrence.
-Toprol XL
#Dyslipidemia:
-Continue atorvastatin 40 mg daily.
-Goal LDL < 55.
#DM:
-Chronic, stable.
-HbA1c = 6.7%.
#Allergic reaction:previously noted
-Acute.
-Resolved with epinephrine, steroids, anti-histamines.
#Abnormal CT scan (CTA 07/18/25)/Pulmonary Wheeze:
-No PE, distal tracheal and bilateral bronchial wall thickening in keeping with tracheobronchitis, small b/l pleural effusions, bilateral diffuse mosaic attenuation which may represent air trapping, mild cardiomegaly, enlarged mediastinal lymph
nodes.
-Continue bronchodilator nebulizer treatments.
DATA:
CT Surgery, 07/21/2025:
Procedure(s) Performed:
1. Standard Sternotomy with Aortic and Right Atrial Cannulation
2. Internal Mammary Artery Harvesting, Left
3. Coronary artery bypass grafting x 4 (In situ STERLING to LAD, Ao to RSVG to Diag, Ao to OM1, Ao to RSVG to PDA)
4. Endoscopic vein harvesting of right greater saphenous vein
5. Transesophageal echocardiography
6. Placement of Temporary Ventricular Pacing Wires
7. Left atrial appendage ligation
Intraprocedural MARY, 07/21/2025:
CONCLUSIONS
Global hypokinesis of the left ventricle with eccentric hypertrophy. The LVEF
is 30%.
Normal right ventricular size and systolic function.
Mild aortic stenosis with mild/moderate aortic insufficiency.
Calcified mitral valve annulus with mild regurgitation.
The left atrial appendage is normal.
Normal size ascending aorta with grade III atheromatous disease of the arch and
descending thoracic segments.
POST OPERATIVE FINDINGS
S/P CABG x 4; DANIELLE exclusion
The left atrial appendage is no longer visible with color flow Doppler
confirming the absence of flow. The rhythm is sinus with pharmacological
support of dobutamine 5 mcg/kg/min. Grossly unchanged ejection fraction but the
ventricle is snappier on the inotropic support. The mitral regurgitation is now
trace. Otherwise unchanged exam.
Physical Exam
Vital Signs/Labs
Vital Signs
Temp Pulse Resp BP Pulse Ox
98.5 F 88 14 137/74 96
07/26/25 03:37 07/26/25 07:16 07/26/25 07:16 07/26/25 03:37 07/26/25 07:16
07/25/25 07/26/25 07/27/25
06:59 06:59 06:59
Actual Weight 108.2 kg 106 kg
07/25/25 05:51
07/26/25 06:19
PT 16.9 Sec (11.4-14.6) H 07/21/25 13:03
INR 1.34 07/21/25 13:03
APTT 27.8 Sec (23.4-35.0) 07/21/25 13:03
Magnesium 2.2 mg/dl (1.6-2.3) 07/26/25 06:19
Triglycerides 136 mg/dl (10-149) 07/20/25 04:51
LDL Cholesterol, Calc 126 mg/dl 07/20/25 04:51
VLDL Cholesterol, Calc 27 mg/dl (0-30) 07/20/25 04:51
HDL Cholesterol 35 mg/dl 07/20/25 04:51
Physical Exam
Constitutional: No acute distress
Cardiovascular: Rhythm & rate is regular
Respiratory: Wheeze Absent and Rhonchi Absent
GI: Soft
Neuro/Psych: Alert
Data Reviewed
-
Date of Service: July 26, 2025
Medical Decision Making: Reviewed Test Results
Echo: Report Reviewed by me
Medical Tests (PFT, Pathology etc): Report Reviewed by me
Labs: Labs Reviewed by me
[2025-07-26] MEDS: PROTONIX 40 MG PO (07:55)
[2025-07-26] MEDS: LOW STRENGTH ASPIRIN 81 MG PO (07:55)
[2025-07-26] MEDS: KCL 20 MEQ PO (07:55)
[2025-07-26] MEDS: MAGNESIUM OXIDE 400 MG PO (07:55)
[2025-07-26] MEDS: LASIX 40 MG PO (07:55)
[2025-07-26] MEDS: TOPROL XL 50 MG PO (07:55)
[2025-07-26] MEDS: MUCINEX 1200 MG PO (07:55)
[2025-07-26] MEDS: FARXIGA 10 MG PO (07:55)
[2025-07-26] MEDS: PLAVIX 75 MG PO (07:55)
[2025-07-26] MEDS: PACERONE 200 MG PO (07:55)
[2025-07-26] MEDS: NSS IV (07:56)
[2025-07-26] MEDS: NEURONTIN PO (08:01)
[2025-07-26] MEDS: SENOKOT PO (08:01)
[2025-07-26] MEDS: ZESTRIL 20 MG PO (08:05)
[2025-07-26] MEDS: NOVOLOG FLEXPEN-MODERATE RESISTANCE SC (08:09)
--- NOTE | 2025-07-26 08:23 | PN.DE.MGMTRT ---
Insulin Management
- -
07/26/2025: Diabetes Management Follow up
Patient admitted with MVCAD with NSTEMI and acute ischemic heart failure with reduced ejection fraction. PMH: HTN, HLD, [id number] controlled, renal stones, prostate CA - prostatectomy. States he does not monitor his blood sugars and doesn't have a
glucose meter at home. A1C 6.9%, Cr 0.8, eGFR >60
Pt is awake, alert, oriented, out of bed in chair, offers no complaints, able to discuss diabetes care plan. at bedside very supportive.
Now POD #5 s/p CABG x4. Transitioned off glycemic protocol on 07/23 to oral diabetes therapy.
Glucose stable and in range, 126 to 181. FBG 134 today.
Will make no changes to current regimen: Farxiga 10mg daily. (Jardiance is covered at [facility]). Will NOT resume Metformin, pt had severe GI SE.
Discussed with Nurse. Will cont to follow.
Pt was seen by the Diabetes Nurse Educator to provide monitor instructions. RX for test strips, lancets and meter in ambulatory orders.
Diabetes History
- -
Type of Diabetes: 2
Pre-Admission Diabetes Regimen
07/26/25 07/26/25
03:44 06:19
Creatinine Cancelled 0.9
Lab Results
Hemoglobin A1c 6.9 % (4.0-5.6) H 07/20/25 04:51
Insulin Pump Settings
IP Diabetes Regimen
07/25/25 07/25/25 07/25/25
08:27 12:33 17:13
Glucose
POC Glucose 131 H 181 H 126 H
07/25/25 07/26/25 07/26/25
21:24 03:44 06:19
Glucose Cancelled 137 H
POC Glucose 161 H
07/26/25
07:49
Glucose
POC Glucose 134 H
Meal type: Breakfast
Amount consumed: 100%
Patient Education
--- NOTE | 2025-07-26 08:45 | PTCARENOTE ---
Patient received from mine inspector RN; AAOx3, responds spontaneously to RN and follows commands; VSS; NSR on monitor; +1 B/L LE edema; +2 DP and radial pulses; NOGUEIRA; Shallow respirations; Occasional, strong cough with clear, thick sputum; Lungs
diminished at bases; SpO2 94-96% on RA; IS 1250 ml; Patient refusing scheduled laxative this AM; Patient urinating in urinal; Surgical wounds intact; PIVx1; Lisinopril ordered and given; See nursing documentation for further information
--- NOTE | 2025-07-26 08:54 | W.DCSUMMARY ---
Discharge Summary
Discharge Data
Date of Admission: 07/19/25
Date of Discharge: 07/26/25
-
Pending Results: No
Hospital Course
Primary care physician: Jerad Bowden
Outpatient personal lines account executive: Joelle Degroot
Inpatient consultants: [facility] cardiology, pulmonary tire building supervisor, �diabetes nurse practitioner�
Procedures:
1. CABG x 4, left atrial appendage ligation
Primary Diagnosis:
1. NSTEMI/multivessel coronary disease
Secondary Diagnoses:
Chronic HFrEF (25% pre-op>30% post-op)
ICM
Angioedema (IgE mediated?)
HTN
HLD
DM2 A1c 6.7%
Prostate cancer s/p prostatectomy
Class II obesity (BMI 34.5)
-Acuter postop blood loss/Anemia (stable without blood transfusion)
-Acute postop hypoxemia
-Acute postop pulmonary insufficiency
-Acute postop atelectasis/left pleural effusion
-Acute postop hypovolemia with subsequent hypervolemia
-Acute postop hyponatremia
-Acute postop NSVT/tachycardia
HPI: 70 year old male initially presented to [facility] ED on 07/18/25 with shortness of breath and chest pressure. He was found to have cardiomyopathy with estimated ejection fraction 25%. Left heart cath on 07/19 reported multivessel coronary artery
disease. Patient transferred to [facility] on 07/20 for evaluation for CABG.
Hospital course: In the evening of 07/20, patient swollen lip and itchiness on his back around 5pm. He was given 25mg of IV Benadryl. After one hour patient was noted to have more swelling, difficulty coughing and breathing. He was then treated
with a total of 1mg if IM Epi, 60mg of methylprednisone, 20mg IV Pepcid, and 50mg of Benadryl. He was placed on 6LNC for comfort and anesthesia was called to bedside since there was a low threshold for intubation. Patient responded well to
medications and patient was transferred to CVICU for closer monitoring. He reports that his symptoms rapidly improved. Although, it is unknown what agent caused this reaction since the patient only reported allergies to ibuprofen and PCN. Patient
had no further issues and was brought to the operating room on 07/21/25 where he underwent CABG x 4 with STERLING to LAD, SVG to PDA, SVG to OM, SVG to diagonal, and left atrial appendage exclusion by Dr. Kyung Cano. Intraoperative MARY reported an EF of
30%. Patient received no intraoperative blood products and arrived to CVICU on dobutamine at 5, Levophed at 2, Precedex and insulin. Initial ABG was hypoxic. Patient received DuoNeb treatments and PEEP, which enabled weaning of ventilator
settings. Patient was extubated approximately 1600 the day of surgery. On postoperative day 1, left pleural chest tube and arterial line were discontinued patient was diuresed. Aspirin with a 3-month course of Plavix was prescribed. Patient
received daily diuretics during his postop course. Patient was evaluated by the diabetic nurse practitioner team and prescribed Farxiga. He was weaned off dobutamine on postoperative day #3 and started on beta-hal. Ventricular wires were
removed without incident. On postoperative day #4, the right IJ was removed. Patient had 8 beat nonsustained VT and no further episodes. He will be discharged on amiodarone, Toprol XL at 50 mg daily, and Lasix. Farxiga changed to Jardiance due to
co-pay cost. Further uptitration of GDMT will occur as an outpatient. Patient was resumed on home lisinopril with plan to assess for Entresto after discharge. Patient was recommended to see an wrapper operator for his anaphylactic reaction from an unknown
source. Patient completed steps without difficulty and is deemed stable for discharge to home. He will be followed by transitional nurse team and have repeat BMP in 1 week.
Home medication changes:
Hydrochlorothiazide changed to Lasix
Lisinopril 40 mg changed to 20 mg daily
Discharge Plan
-
Patient Disposition: Home (Routine Discharge)
Discharge Diagnosis/Procedures: CABG x 4 and left atrial appendage clip (07/21/25)
Condition: Good
Diet: Low Cholesterol and Low Sodium
Activity: No strenuous activity
Driving Restrictions: Not until seen by your Dr
Bathing Restrictions: OK to Shower
Blood Work: BMP in 1 week
Other Services: Cardiac Rehab
Specialty Instructions: Weigh Daily- Call MD for wt gain/loss 3 lbs overnight/5 lbs in 1 week
Referrals:
CT Transitional Care Nurse [Outside] - in one to two days
Jerad Bowden DO [Family Provider, Internal Medicine] - in four to six weeks
Referral Note: Please make an appointment in four to six weeks.
Edil Chavarria MD [Active, Pulmonary Medicine]
Referral Note: [facility]IN evaluation - may see [employer]S TEACHER and then me.
Ion Degroot MD [Active, Cardiology] - 09/19/25 1:00 pm
Kyung Cano MD [Active, Cardiac Surgery] - 08/23/25 9:30 am
Prescriptions:
New
(DME) Accu-Chek Guide test strips Strip
Qty: 100 1RF
Rx Instructions:
Test 2 times per day, fasting and 2 hours after a meal As Directed E 11.65
(DME) lancets [Accu-Chek Softclix Lancets] Misc
Qty: 200 1RF
Rx Instructions:
Test 2 times per day, fasting and 2 hours after a meal As Directed E 11.65
(DME) blood-glucose meter [Accu-Chek Guide Glucose Meter] Misc
Qty: 1 0RF
Rx Instructions:
Test 2 times per day, fasting and 2 hours after a meal As Directed E 11.65
acetaminophen 325 mg Tablet
650 mg PO Q4HPRN PRN (Reason: mild pain,headache,temp >101F ) Qty: 0 0RF
clopidogrel 75 mg Tablet
75 mg PO DAILY Qty: 30 1RF
aspirin 81 mg Tablet,Chewable
81 mg PO DAILY Qty: 0 0RF
furosemide 40 mg Tablet
40 mg PO DAILY Qty: 30 1RF
atorvastatin 40 mg Tablet
40 mg PO QPM Qty: 30 2RF
amiodarone 200 mg tablet
200 mg PO DAILY Qty: 30 1RF
metoprolol succinate 50 mg Tablet Extended Release 24 Hr
50 mg PO DAILY Qty: 30 2RF
lisinopril 20 mg Tablet
20 mg PO DAILY Qty: 30 1RF
gabapentin 100 mg Capsule
100 mg PO TID Qty: 30 0RF
cyclobenzaprine 10 mg Tablet
5 mg PO Q8HPRN PRN (Reason: muscle spasm) Qty: 10 0RF
pantoprazole 40 mg Tablet,Delayed Release (Dr/Ec)
40 mg PO DAILY Qty: 30 2RF
oxycodone 5 mg Tablet
5 mg PO Q4HPRN PRN (Reason: severe pain) Qty: 10 0RF
Jardiance 25 mg tablet
25 mg PO DAILY Qty: 30 2RF
Continued
Multi Vitamin
DAILY
Metamucil
1XD
Discontinued
lisinopril 40 mg Tablet
40 mg PO DAILY
hydrochlorothiazide 12.5 mg Tablet
12.5 mg PO DAILY
Discharge Orders:
Discharge Patient (As Directed); Ordered 07/26/25
Ordered By: Cheyenne Tomas
Care Plan Goals
Care Plan Goals:
Problem: Readiness for enhanced knowledge related to diagnosis and treatment plan
Goal: Understand your diagnosis and treatment plan needs, including medications if applicable.
Instructions: Know your diagnosis, underlying causes and treatment plan options, including medications if applicable. Consult with your health care team to learn about your diagnosis and treatment plan, including medications if applicable.
Discharge Date and Time
Print Language: FILIPINO
[2025-07-26] MEDS: FLUZONE HIGH-DOSE 2025-26 0.5 ML IM (10:08)
[2025-07-26] MEDS: PREVNAR 20 0.5 ML IM (10:09)
--- NOTE | 2025-07-26 10:56 | CM ---
Reviewed chart. Met with and Mrs. Zacarias to review discharge plans. He states he is feeling well and maybe able to go home soon. We reviewed a home visit by the Transitional Care Nurse. He is agreeable to home visit. He has a stair lift to get
to the second floor if needed. His spouse will be home to assist in his care if needed. Will continue to see his current functional level to he will have any skilled care needs. Prior to admission he resides with his spouse in a three story home
with three steps to enter. He states he has a full flight of steps get to bedroom/full bathroom. He states he has a powder room on the first floor. He states prior to admission he was independent with ambulation and adls. He has a prescription
plan and uses [facility]. Medical work-up in progress. The discharge plan is to return home with his spouse and a home visit by the Transitional Care Nurse when medically stable.
--- NOTE | 2025-07-26 11:17 | PTCARENOTE ---
Patient states full understanding of discharge instructions and has no further questions at this time; VSS; PIVx1 and telemetry pack removed; Patient belongings with patient and spouse in room; Awaiting wheelchair transport to spouse's car at this
time
--- NOTE | 2025-07-26 11:19 | PTCARENOTE ---
07/26/2025 DIABETES EDUCATION CONSULT
At patient request, completed verbal and self demonstration of [employer] Next glucometer. BS 163 mg/dL. Reviewed blood sugar parameters. Patient feels confident in performing glucose monitoring, will contact office with any questions after d/c.
== END 2025-07-26 12:15 | disposition home or self-care (01) | DRG 235 ==
LOC: CVICU 22:29
PROVIDERS: Anesthesiology; Clinical Nurse Specialist Acute Care; Nurse Practitioner; Physician Assistant Medical; Thoracic Surgery (Cardiothoracic Vascular Surgery); ADMITTING PHYSICIAN Student in an Organized Health Care Education/Training Program; CONSULT PHYSICIAN Internal Medicine Critical Care Medicine; FAMILY PHYSICIAN Internal Medicine; OTHER PHYSICIAN Internal Medicine Cardiovascular Disease
PROC: 5A1221Z Performance of Cardiac Output, Continuous (ICD-10-PCS; 2025-07-21)
PROC: 02L70CK Occlusion of Left Atrial Appendage with Extraluminal Device, Open Approach (ICD-10-PCS; 2025-07-21)
PROC: 02100Z9 Bypass Coronary Artery, One Artery from Left Internal Mammary, Open Approach (ICD-10-PCS; 2025-07-21)
PROC: 06BP4ZZ Excision of Right Saphenous Vein, Percutaneous Endoscopic Approach (ICD-10-PCS; 2025-07-21)
PROC: B24BZZ4 Ultrasonography of Heart with Aorta, Transesophageal (ICD-10-PCS; 2025-07-21)
PROC: 021209W Bypass Coronary Artery, Three Arteries from Aorta with Autologous Venous Tissue, Open Approach (ICD-10-PCS; 2025-07-21)
PROC: 3E02340 Introduction of Influenza Vaccine into Muscle, Percutaneous Approach (ICD-10-PCS; 2025-07-26)
PROC: 3E0234Z Introduction of Serum, Toxoid and Vaccine into Muscle, Percutaneous Approach (ICD-10-PCS; 2025-07-26)
DX: I21.4 Non-ST elevation (NSTEMI) myocardial infarction (principal); I50.23 Acute on chronic systolic (congestive) heart failure; J95.2 Acute pulmonary insufficiency following nonthoracic surgery; D62 Acute posthemorrhagic anemia; J98.11 Atelectasis; E87.1 Hypo-osmolality and hyponatremia; I47.29 Other ventricular tachycardia; T78.2XXA Anaphylactic shock, unspecified, initial encounter; E86.1 Hypovolemia; I25.10 Atherosclerotic heart disease of native coronary artery without angina pectoris; I11.0 Hypertensive heart disease with heart failure; I25.5 Ischemic cardiomyopathy; T78.3XXA Angioneurotic edema, initial encounter; E78.00 Pure hypercholesterolemia, unspecified; E11.9 Type 2 diabetes mellitus without complications; E66.812 Obesity, class 2; Z68.35 Body mass index [BMI] 35.0-35.9, adult; Y83.8 Other surgical procedures as the cause of abnormal reaction of the patient, or of later complication, without mention of misadventure at the time of the procedure; R59.0 Localized enlarged lymph nodes; Z87.891 Personal history of nicotine dependence; J44.89 Other specified chronic obstructive pulmonary disease; I35.0 Nonrheumatic aortic (valve) stenosis; Z23 Encounter for immunization; Z85.46 Personal history of malignant neoplasm of prostate; Z87.442 Personal history of urinary calculi
CPT/HCPCS: 71045; 71046; 71275; 74174; 80048; 80053; 80061; 81003; 81015; 82330; 82565; 82805; 82810; 82947; 82962; 83036; 83735; 84132; 84302; 84484; 84520; 85014; 85018; 85027; 85049; 85576; 85610; 85730; 86850; 86900; 86901; 86920; 87070; 90662; 90677; 93005; 93306; 93312; 93320; 93325; 93880; 93923; 93930; 94002; 94060; 94640; G0008; G0009; J7197; P9045; Q9950; Q9967

== ENCOUNTER → 2025-08-16 10:50 | Outpatient (REF) | payer MEDICARE, BC, SELFPAY | LOC: HWRCS 10:50 | PROVIDERS: ATTENDING PHYSICIAN Student in an Organized Health Care Education/Training Program | DX: Z95.1 Presence of aortocoronary bypass graft (principal); I35.1 Nonrheumatic aortic (valve) insufficiency | CPT/HCPCS: 93306 ==